=== PATIENT | female | born 1980 | race African-American/Black ===

== ENCOUNTER 2021-01-11 15:38 | Inpatient (IN) ==
[2021-01-11 17:36] LABS: Appearance Urine Clear (Clear); Bilirubin Urine Negative (Negative); Blood Urine Negative (Negative); Color Urine Dark Yellow; Glucose Urine UA Negative (Negative); Ketones Urine Trace (Negative); Leukocyte Esterase Urine Negative (Negative); Nitrite Urine Negative (Negative); Protein Urine Negative (Negative); Specific Gravity Urine 1.021 (1.000-1.030); Urobilinogen Urine Negative (Negative); pH Urine 5.5 (4.5-7.5)
[2021-01-11 18:05] LABS: Amphetamines+Metham, Urine Neg (Neg); Barbiturates, Urine Neg (Neg); Benzodiazepine, Urine Pos (Neg); Cocaine, Urine Neg (Neg); MDMA (Ecstacy), Urine Pos (Neg); Methadone, Urine Neg (Neg); Opiate, Urine Neg (Neg); Phencyclidine, Urine Neg (Neg)
[2021-01-11 18:11] LABS: Hemoglobin 12.6 g/dL (12.0-16.0); Mean Corpuscular Hemoglobin 29.6 pg (25-34); Mean Corpuscular Hgb Conc 34.1 g/dL (32-36); Mean Corpuscular Volume 87.1 fL (80-100); Mean Platelet Volume 8.6 fL (7.4-10.4); Platelet Count 275 K/uL (130-400); RDW Coefficient of Variation 13.9 % (11.5-14.5); RDW Standard Deviation 44.8 fL (36.4-46.3); Red Blood Count 4.25 M/uL (4.2-5.4); White Blood Count 4.76 K/uL (4.8-10.8)
[2021-01-11 18:25] LABS: Basophils # (auto) 0.01 K/uL (0-0.2); Basophils % (auto) 0.2 %; Eosinophils # (auto) 0.03 K/uL (0-0.5); Eosinophils % (auto) 0.6 %; Immature Granulocytes # (auto) 0.01 K/uL (0.00-0.02); Immature Granulocytes % (auto) 0.2 %; Lymphocytes # (auto) 2.62 K/uL (1.2-3.4); Monocytes # (auto) 0.51 K/uL (0.11-0.59); Monocytes % (auto) 10.7 %; Neutrophils # (auto) 1.58 K/uL (1.4-6.5); Neutrophils % (auto) 33.3 %
[2021-01-11 18:28] LABS: Albumin Level 3.5 gm/dl (3.4-5.0); BUN Creatinine Ratio 10.4 (10-20); Calcium 9.6 mg/dl (8.5-10.1); Creatinine Clr Calc Pharmacy 80.1 ml/min; Est GFR (African American) 80.1; Est GFR (Non-African American) 69.1; Potassium 3.7 mmol/L (3.5-5.1)
[2021-01-11 18:30] LABS: Salicylate < 1.7 mg/dl (2.8-20)
[2021-01-11 18:31] LABS: Acetaminophen < 2 ug/ml (10-30)
[2021-01-11 18:39] LABS: Albumin Globulin Ratio 0.7 (0.9-2); Bilirubin,Total 0.7 mg/dl (0.2-1); Globulin 4.8 gm/dl (2.5-4.0); Thyroid Stimulating Hormone 1.11 uIu/ml (0.300-4.500); Total Protein 8.3 gm/dl (6.4-8.2)
[2021-01-11 18:42] LABS: Pregnancy Test, Serum Negative (Negative)
[2021-01-11] MEDS ORDERED: LOPERAMIDE HCL 2 MG CAP PO PRN (18:48)
[2021-01-11] MEDS ORDERED: NON-FORMULARY MEDICATION (Diclofenac Sodium 50 mg Tablet,Delayed Release (Dr/Ec)) PO PRN (18:48)
[2021-01-11] MEDS ORDERED: NICOTINE POLACRILEX 2 MG GUM MT PRN (18:48)
[2021-01-11] MEDS ORDERED: cloNIDine HCL 0.1 MG TAB PO PRN (18:48)
[2021-01-11] MEDS ORDERED: NON-FORMULARY MEDICATION (Melatonin 5 mg Tablet) PO PRN (18:48)
[2021-01-11] MEDS ORDERED: hydrOXYzine HCl 25 MG TAB PO PRN (18:48)
[2021-01-11] MEDS ORDERED: MELATONIN 3 MG TAB PO PRN (20:04)
[2021-01-11 20:15] LABS: Influenza A virus by PCR Negative (Neg); Influenza B virus by PCR Negative (Neg); RSV by PCR Negative (Neg); SARS CoV2 RNA(COVID-19) InHosp NEGATIVE (Negative)
[2021-01-11] MEDS ORDERED: PRAZOSIN HCL 1 MG CAP PO SCH ×2 (21:00)
--- NOTE | 2021-01-11 21:57 | Emergency Department Note ---
Impression & Plan Suicidal ideation ED Provider Note NAME: RENNY LUONG AGE: 40 SEX: F ARRIVES VIA: Walk-In INFORMANT: Patient, ED PROVIDER(S): Nitin Arizmendi MD CHIEF COMPLAINT: Suicidal ideation PLAN: Disposition: Admit, 3S MEDICAL DECISION MAKING: The patient is a pleasant 40-year-old woman with a past medical history anxiety, depression, heroin abuse who presents to the emergency department from her detox facility at [facility] for evaluation of suicidal ideation which the patient reported today where she was in her room thinking of blocking the door to her room and cutting her wrists so no one could get to her in time. The patient presents to the emergency department in the setting of her report of recently moving to [place] to be with her daughter were her prescription for Suboxone from [place] where she you have previously could not be filled and she went at least 4 weeks per her description without having Suboxone when she agreed to [facility] with her daughter but wanted to complete a substance abuse program to make sure she was on track and so she says she came to [facility]. While she reports she initially did not want to resume Suboxone she relates that her counselor from [place] encouraged her to not discontinue this abruptly and so she agreed to a tapering dose which was performed at [facility]. However today she reports feeling increasingly depressed and hopeless and had thoughts of wanting to kill herself. She reports these thoughts have calmed but still feels depressed and feels she would benefit from a psychiatric admission. Note, following the patient's psychiatric evaluation she did report to our sample case porter that she thinks she fell last night in the bathroom but does not recall the circumstances very well. She reports alerting a staff member at [facility] and she was not found to have any injuries. At this time she denies any pain though she reported some numbness and tingling in her hand. Otherwise she denies any recent fevers, chills, cough, congestion, GI or symptoms. The patient is in agreement for voluntary psychiatric admission if able to be placed. On arrival the patient is tearful appearing but no acute distress, afebrile with stable vital signs. She has no traumatic findings. There is no tenderness of the CT L-spine. She has normal strength in all extremities. She does report depression and intermittent SI with plan. She denies hopelessness in this momen t. She denies having auditory hallucinations. WBC 4.7K, H/H and platelets within normal limits. Chemistry without metabolic acidosis. LFTs unremarkable. TSH within normal limits. hCG negative. UA without convincing evidence of infection. Drug screen positive for benzodiazepines and MDMA likely from her bupropion. COVID-19 PCR negative. Influenza and RSV PCR also negative. Given her report of an unwitnessed fall a CT of the head and C-spine were performed and per preliminary stat report were negative for acute findings. Patient medically cleared. Referral made to and was accepted. Triage Nursing notes reviewed and agree them. Prior medical records reviewed Vital Signs: reviewed and remarkable for no significant abnormalities Differential diagnosis: Mood disorder, infection, hypoglycemia, electrolyte abnormalities, cardiac sources, intracerebral event, toxicologic, trauma, neurologic, as well as other pathologies. ER treatment provided: See below. Laboratory studies: See below Imaging studies: [facility] Preliminary Findings Only See Final Report For Complete Findings CT C SPINE: No fracture or malalignment. Radiologist: Paul Erwin MD Study ready at 21:42 and initial results transmitted at 21:50 ----- Preliminary Findings Only See Final Report For Complete Findings CT HEAD: No acute intracranial hemorrhage, hydrocephalus, edema, or mass effect. Paranasal sinuses and mastoid air cells are clear. No fracture. Radiologist: Paul Erwin MD Study ready at 21:30 and initial results transmitted at 21:36 HPI: The patient is a pleasant 40-year-old woman with a past medical history anxiety, depression, heroin abuse who presents to the emergency department from her detox facility at [facility] for evaluation of suicidal ideation which the patient reported today where she was in her room thinking of blocking the door to her room and cutting her wrists so no one could get to her in time. The patient presents to the emergency department in the setting of her report of recently moving to [place] to be with her daughter were her prescription for Suboxone from [place] where she you have previously could not be filled and she went at least 4 weeks per her description without having Suboxone when she agreed to stay in [place] with her daughter but wanted to complete a substance abuse program to make sure she was on track and so she says she came to [facility]. While she reports she initially did not want to resume Suboxone she relates that her counselor from [place] encouraged her to not discontinue this abruptly and so she agreed to a tapering dose which was performed at [facility]. However today she reports feeling increasingly depressed and hopeless and had thoughts of wanting to kill herself. She reports these thoughts have calmed but still feels depressed and feels she would benefit from a psychiatric admission. Note, following the patient's psychiatric evaluation she did report to our sample case porter that she thinks she fell last night in the bathroom but does not recall the circumstances very well. She reports alerting a staff member at [facility] and she was not found to have any injuries. At this time she denies any pain though she reported some numbness and tingling in her hand. Otherwise she denies any recent fevers, chills, cough, congestion, GI or symptoms. The patient is in agreement for voluntary psychiatric admission if able to be placed. ROS: See above HPI for pertinent positives & negatives. A total of 10 systems reviewed and were otherwise negative. PAST MEDICAL HISTORY:See Below PAST SURGICAL HISTORY:See Below FAMILY HISTORY:See Below SOCIAL HISTORY:See Below HOME MEDICATIONS:See Below ALLERGIES:See Below VITALS:See Below PHYSICAL EXAMINATION: GENERAL: Awake, alert, anxious/melancholy-appearing, in no distress HENT: Normocephalic, atraumatic. Oropharynx unremarkable. EYES: Normal conjunctiva. Sclera non-icteric. EOMI. No nystamgus. PEARRL. NECK: Supple. No nuchal rigidity. FROM. No JVD. RESPIRATORY: Clear to auscultation. CARDIAC: Regular rate, normal rhythm. Extremities warm and well perfused. Pulses equal. ABDOMEN: Soft, non-distended. No tenderness to palpation. No rebound or guarding. No masses. RECTAL: Deferred. MUSCULOSKELETAL: Chest examination reveals no tenderness. The back is symmetrical on inspection without obvious abnormality. There is no CVA tenderness to palpation. No joint edema. LOWER EXTREMITIES: Calves are equal size bilaterally and non-tender. No edema. No discoloration. NEURO: Normal sensorium. No sensory or motor deficits noted. 5/5 strength and SILT x 4 extremities. SKIN: No rash or jaundice noted. Nitin Arizmendi MD Past Med/Surg History Medical History Depression Heroin abuse Social History Smoking Status: Current some day smoker Preferred Language: Icelandic Communication Ability: Effective Death Surveys Coder Required: No Beliefs That Will Affect Care: None Feels Safe at Home: Yes Assistive Devices: None Allergies Allergies Allergy/AdvReac Type Severity Reaction Status Date / Time lactose AdvReac Intermediate INTOLERATE Verified 01/11/21 18:21 Home Meds Home Medications Medication Instructions Recorded Confirmed bupropion HCl [Wellbutrin XL] 150 mg PO QAM 01/11/21 01/11/21 bupropion HCl [Wellbutrin XL] 300 mg PO QAM 01/11/21 01/11/21 clonidine HCl 0.1 mg PO TID PRN 01/11/21 01/11/21 cyanocobalamin (vitamin B-12) 1,000 mcg PO DAILY 01/11/21 01/11/21 [Vitamin B-12] diclofenac sodium 50 mg PO TID PRN 01/11/21 01/11/21 diphenhydramine HCl [Benadryl] 25 - 50 mg PO Q6H PRN 01/11/21 01/11/21 escitalopram oxalate [Lexapro] 20 mg PO DAILY 01/11/21 01/11/21 folic acid 1 mg PO DAILY 01/11/21 01/11/21 hydroxyzine HCl [Atarax] 50 - 100 mg PO BID PRN 01/11/21 01/11/21 loperamide [Imodium] 4 mg PO QID PRN 01/11/21 01/11/21 melatonin 5 - 10 mg PO HS PRN 01/11/21 01/11/21 multivitamin 1 tab PO DAILY 01/11/21 01/11/21 nicotine (polacrilex) [Nicorette] 4 mg BUCCAL Q2H PRN 01/11/21 01/11/21 prazosin 2 mg PO HS 01/11/21 01/11/21 prazosin 10 mg PO HS 01/11/21 01/11/21 thiamine HCl (vitamin B1) 100 mg PO DAILY 01/11/21 01/11/21 Results & Data (ED) Vital Signs Vital Signs - 24 hr 01/11/21 15:41 01/11/21 18:53 01/11/21 23:09 Temperature 36.6 C Temperature Source Temporal Artery Scan Pulse Rate 93 H 94 H Pulse Rate [Right Finger] 77 Pulse Rhythm [Right Finger] Regular Pulse Strength [Right Finger] Normal Respiratory Rate 20 16 18 Respiratory Effort / Characteristics Non-Labored Spontaneous Non-Labored Respiratory Depth Normal Normal Respiratory Pattern Regular Blood Pressure 128/88 116/79 Blood Pressure [Right Radial Artery] 128/75 Blood Pressure Mean 101 Blood Pressure Mean [Right Radial Artery] 92 Blood Pressure Position [Right Radial Artery] Lying Pulse Oximetry 100 100 100 Oxygen Delivery Method Room Air Room Air Room Air Sepsis Recent Fever Within 48 Hours No Sepsis New/Unexplained Change in Mental Status N/A Sepsis Action Taken by Nursing No Action Required Laboratory Data Attestation: I reviewed the patient's lab results. Result diagrams: 01/11/21 17:52 01/11/21 17:52 Lab Results 01/11/21 01/11/21 01/11/21 Range/Units 17:20 17:20 17:52 WBC 4.76 L (4.8-10.8) K/uL RBC 4.25 (4.2-5.4) M/uL Hgb 12.6 (12.0-16.0) g/dL Hct 37.0 (37-47) % MCV 87.1 (80-100) fL MCH 29.6 (25-34) pg MCHC 34.1 (32-36) g/dL RDW Std Deviation 44.8 (36.4-46.3) fL RDW Coeff of Yogi 13.9 (11.5-14.5) % Plt Count 275 (130-400) K/uL MPV 8.6 (7.4-10.4) fL Immature Gran % (Auto) 0.2 % Neut % (Auto) 33.3 % Lymph % (Auto) 55.0 % Amelia % (Auto) 10.7 % Eos % (Auto) 0.6 % Baso % (Auto) 0.2 % Neut # (Auto) 1.58 (1.4-6.5) K/uL Lymph # (Auto) 2.62 (1.2-3.4) K/uL Amelia # (Auto) 0.51 (0.11-0.59) K/uL Eos # (Auto) 0.03 (0-0.5) K/uL Baso # (Auto) 0.01 (0-0.2) K/uL Immature Gran # (Auto) 0.01 (0.00-0.02) K/uL Sodium (136-145) mmol/L Potassium (3.5-5.1) mmol/L Chloride (98-107) mmol/L Carbon Dioxide (21-32) mmol/L Anion Gap (3-11) BUN (7-18) mg/dl Creatinine (0.6-1.2) mg/dl Est Cr Clr Drug Dosing ml/min Est GFR ( Amer) Est GFR (Non-Af Amer) BUN/Creatinine Ratio (10-20) Glucose (70-99) mg/dl Calcium (8.5-10.1) mg/dl Total Bilirubin (0.2-1) mg/dl AST (15-37) U/L ALT (12-78) U/L Alkaline Phosphatase (45-117) U/L Total Protein (6.4-8.2) gm/dl Albumin (3.4-5.0) gm/dl Globulin (2.5-4.0) gm/dl Albumin/Globulin Ratio (0.9-2) TSH (0.300-4.500) uIu/ml HCG, Qual (Negative) Urine Color Dark Yellow Urine Appearance Clear (Clear) Urine pH 5.5 (4.5-7.5) Ur Specific [place] 1.021 (1.000-1.030) Urine Protein Negative (Negative) Urine Glucose (UA) Negative (Negative) Urine Ketones Trace H (Negative) Urine Blood Negative (Negative) Urine Nitrite Negative (Negative) Urine Bilirubin Negative (Negative) Urine Urobilinogen Negative (Negative) Ur Leukocyte Esterase Negative (Negative) Salicylates (2.8-20) mg/dl Urine Opiates Screen Neg (Neg) Ur Methadone, Qual Neg (Neg) Acetaminophen (10-30) ug/ml Urine Barbiturates Neg (Neg) Ur Phencyclidine (PCP) Neg (Neg) U Amphetamin/Meth Scrn Neg (Neg) MDMA (Ecstasy) Screen Pos H (Neg) U Benzodiazepines Scrn Pos H (Neg) Ur Cocaine Metabolite Neg (Neg) U Marijuana (THC) Screen Neg (Neg) Ethyl Alcohol mg/dL (0-3) mg/dl COVID-19 Eval Order SARS-CoV-2 (PCR) (Negative) Influenza Type A (PCR) (Neg) Influenza Type B (PCR) (Neg) RSV (RT-PCR) (Neg) 01/11/21 01/11/21 01/11/21 Range/Units 17:52 17:52 17:52 WBC (4.8-10.8) K/uL RBC (4.2-5.4) M/uL Hgb (12.0-16.0) g/dL Hct (37-47) % MCV (80-100) fL MCH (25-34) pg MCHC (32-36) g/dL RDW Std Deviation (36.4-46.3) fL RDW Coeff of Yogi (11.5-14.5) % Plt Count (130-400) K/uL MPV (7.4-10.4) fL Immature Gran % (Auto) % Neut % (Auto) % Lymph % (Auto) % Amelia % (Auto) % Eos % (Auto) % Baso % (Auto) % Neut # (Auto) (1.4-6.5) K/uL Lymph # (Auto) (1.2-3.4) K/uL Amelia # (Auto) (0.11-0.59) K/uL Eos # (Auto) (0-0.5) K/uL Baso # (Auto) (0-0.2) K/uL Immature Gran # (Auto) (0.00-0.02) K/uL Sodium 136 (136-145) mmol/L Potassium 3.7 (3.5-5.1) mmol/L Chloride 104 (98-107) mmol/L Carbon Dioxide 24 (21-32) mmol/L Anion Gap 8.0 (3-11) BUN 11 (7-18) mg/dl Creatinine 1.01 (0.6-1.2) mg/dl Est Cr Clr Drug Dosing 80.1 ml/min Est GFR ( Amer) 80.1 Est GFR (Non-Af Amer) 69.1 BUN/Creatinine Ratio 10.4 (10-20) Glucose 86 (70-99) mg/dl Calcium 9.6 (8.5-10.1) mg/dl Total Bilirubin 0.7 (0.2-1) mg/dl AST 21 (15-37) U/L ALT 43 (12-78) U/L Alkaline Phosphatase 121 H (45-117) U/L Total Protein 8.3 H (6.4-8.2) gm/dl Albumin 3.5 (3.4-5.0) gm/dl Globulin 4.8 H (2.5-4.0) gm/dl Albumin/Globulin Ratio 0.7 L (0.9-2) TSH 1.110 (0.300-4.500) uIu/ml HCG, Qual (Negative) Urine Color Urine Appearance (Clear) Urine pH (4.5-7.5) Ur Specific [place] (1.000-1.030) Urine Protein (Negative) Urine Glucose (UA) (Negative) Urine Ketones (Negative) Urine Blood (Negative) Urine Nitrite (Negative) Urine Bilirubin (Negative) Urine Urobilinogen (Negative) Ur Leukocyte Esterase (Negative) Salicylates < 1.7 L (2.8-20) mg/dl Urine Opiates Screen (Neg) Ur Methadone, Qual (Neg) Acetaminophen < 2 L (10-30) ug/ml Urine Barbiturates (Neg) Ur Phencyclidine (PCP) (Neg) U Amphetamin/Meth Scrn (Neg) MDMA (Ecstasy) Screen (Neg) U Benzodiazepines Scrn (Neg) Ur Cocaine Metabolite (Neg) U Marijuana (THC) Screen (Neg) Ethyl Alcohol mg/dL < 3.0 (0-3) mg/dl COVID-19 Eval Order SARS-CoV-2 (PCR) (Negative) Influenza Type A (PCR) (Neg) Influenza Type B (PCR) (Neg) RSV (RT-PCR) (Neg) 01/11/21 01/11/21 01/11/21 Range/Units 17:52 19:30 19:30 WBC (4.8-10.8) K/uL RBC (4.2-5.4) M/uL Hgb (12.0-16.0) g/dL Hct (37-47) % MCV (80-100) fL MCH (25-34) pg MCHC (32-36) g/dL RDW Std Deviation (36.4-46.3) fL RDW Coeff of Yogi (11.5-14.5) % Plt Count (130-400) K/uL MPV (7.4-10.4) fL Immature Gran % (Auto) % Neut % (Auto) % Lymph % (Auto) % Amelia % (Auto) % Eos % (Auto) % Baso % (Auto) % Neut # (Auto) (1.4-6.5) K/uL Lymph # (Auto) (1.2-3.4) K/uL Amelia # (Auto) (0.11-0.59) K/uL Eos # (Auto) (0-0.5) K/uL Baso # (Auto) (0-0.2) K/uL Immature Gran # (Auto) (0.00-0.02) K/uL Sodium (136-145) mmol/L Potassium (3.5-5.1) mmol/L Chloride (98-107) mmol/L Carbon Dioxide (21-32) mmol/L Anion Gap (3-11) BUN (7-18) mg/dl Creatinine (0.6-1.2) mg/dl Est Cr Clr Drug Dosing ml/min Est GFR ( Amer) Est GFR (Non-Af Amer) BUN/Creatinine Ratio (10-20) Glucose (70-99) mg/dl Calcium (8.5-10.1) mg/dl Total Bilirubin (0.2-1) mg/dl AST (15-37) U/L ALT (12-78) U/L Alkaline Phosphatase (45-117) U/L Total Protein (6.4-8.2) gm/dl Albumin (3.4-5.0) gm/dl Globulin (2.5-4.0) gm/dl Albumin/Globulin Ratio (0.9-2) TSH (0.300-4.500) uIu/ml HCG, Qual Negative (Negative) Urine Color Urine Appearance (Clear) Urine pH (4.5-7.5) Ur Specific [place] (1.000-1.030) Urine Protein (Negative) Urine Glucose (UA) (Negative) Urine Ketones (Negative) Urine Blood (Negative) Urine Nitrite (Negative) Urine Bilirubin (Negative) Urine Urobilinogen (Negative) Ur Leukocyte Esterase (Negative) Salicylates (2.8-20) mg/dl Urine Opiates Screen (Neg) Ur Methadone, Qual (Neg) Acetaminophen (10-30) ug/ml Urine Barbiturates (Neg) Ur Phencyclidine (PCP) (Neg) U Amphetamin/Meth Scrn (Neg) MDMA (Ecstasy) Screen (Neg) U Benzodiazepines Scrn (Neg) Ur Cocaine Metabolite (Neg) U Marijuana (THC) Screen (Neg) Ethyl Alcohol mg/dL (0-3) mg/dl COVID-19 Eval Order [facility] at [facility] SARS-CoV-2 (PCR) NEGATIVE (Negative) Influenza Type A (PCR) Negative (Neg) Influenza Type B (PCR) Negative (Neg) RSV (RT-PCR) Negative (Neg) Administered Medications Hydroxyzine HCl (Hydroxyzine Hcl 25 Mg Tab) 50 mg PO HSZ PRN PRN Reason: Insomnia Stop: 02/10/21 23:23 Last Admin: 01/11/21 23:42 Dose: 50 mg Documented by: [id number] Discontinued Medications Hydroxyzine HCl (Hydroxyzine Hcl 25 Mg Tab) 50 - 100 mg PO BID PRN PRN Reason: Anxiety Stop: 02/10/21 18:47 Last Admin: 01/11/21 18:59 Dose: 50 mg Documented by: [id number] Melatonin (Melatonin 3 Mg Tab) 6 mg PO HS PRN PRN Reason: Sleep Stop: 02/10/21 20:03 Last Admin: 01/11/21 20:35 Dose: 6 mg Documented by: [id number] Prazosin HCl (Prazosin Hcl 1 Mg Cap) 2 mg PO HS TERESSA Stop: 02/10/21 20:59 Last Admin: 01/11/21 20:34 Dose: 2 mg Documented by: [id number] Prazosin HCl (Prazosin Hcl 1 Mg Cap) 10 mg PO HS TERESSA Stop: 02/10/21 20:59 Last Admin: 01/11/21 20:34 Dose: 10 mg Documented by: [id number] Discharge Plan Visit Data Chief Complaint: Mental Health Evaluation Stated Complaint: MENTAL HEALTH EVAL ED Provider: Nitin Arizmendi Discharge Problem: Suicidal ideation Patient Disposition: Admitted As Inpatient Discharge Instructions Interventions: ED Discharge Assessment Last Done: 01/11/21 23:09
[2021-01-11] MEDS ORDERED: BISMUTH SUBSALICYLATE LIQD 236 ML PO PRN (23:24)
[2021-01-11] MEDS ORDERED: MAGNESIUM HYDROXIDE SUSP 30 ML UDC PO PRN (23:24)
[2021-01-11] MEDS ORDERED: SODIUM CHLORIDE 0.65% NA SOLN 45 ML (OCEAN) PRN (23:24)
[2021-01-11] MEDS: hydrOXYzine HCl 25 MG TAB PO PRN (23:42)
[2021-01-12] MEDS: ACETAMINOPHEN 325 MG TAB PO PRN (06:31)
[2021-01-12] MEDS: hydrOXYzine HCl 25 MG TAB PO PRN ×3 (06:33→21:23)
--- NOTE | 2021-01-12 07:30 | CT Scan Report ---
CT OF THE CERVICAL SPINE WITHOUT CONTRAST CLINICAL HISTORY: Neck pain following fall. COMPARISON STUDY: No previous studies for comparison. TECHNIQUE: Helical axial images of the cervical spine were obtained without IV contrast. Sagittal a nd coronal reconstructions were viewed. Automated exposure control was utilized for the study. A do se lowering technique was utilized adhering to the principles of ALARA. FINDINGS: There is straightening of the normal cervical lordosis. Vertebral body heights are maintain ed. No acute cervical spine fracture or subluxation is present. There is no prevertebral edema. Facet joints are intact. Several partially calcified right thyroid lobe nodules are noted. These are subo ptimally assessed by CT. A 1.3 cm nodule has peripheral calcification. IMPRESSION: 1. No acute cervical spine fracture or subluxation. 2. Several partially calcified right lobe thyroid nodules, suboptimally assessed by CT. Nonemergent t hyroid ultrasound is recommended. This finding will be called/faxed to the ordering provider at time of dictation. ACT 112: Positive. There are findings on this exam that require communication between the performing entity and the patient following Patient Test Result Information Act ([place] Act 112) guidelines. Electronically signed by: Jose Maria Ge M.D. 01/12/2021 7:29 AM
--- NOTE | 2021-01-12 07:38 | CT Scan Report ---
CT head/brain wo con CLINICAL HISTORY: Head pain status post trauma COMPARISON STUDY: No previous studies for comparison. TECHNIQUE: Axial CT of the brain is performed from the vertex to the skull base. IV contrast was not administered for this examination. A dose lowering technique was utilized adhering to the principles of ALARA. CT DOSE: FINDINGS: No intra or extra-axial mass lesions are visualized. There is no CT evidence of acute cortical infarc tion. There is no evidence of midline shift. There is no acute hemorrhage. No calvarial fractures ar e visualized. There is no evidence of pathologic ventricular dilatation. There is no evidence of acute sinusitis IMPRESSION: No acute intracranial findings ACT 112: Negative or not required by law. Electronically signed by: Mina Gardiner M.D. 01/12/2021 7:36 AM
[2021-01-12] MEDS ORDERED: buPROPion XL 150 MG TABCR PO SCH ×2 (09:00→10:00)
[2021-01-12] MEDS ORDERED: MULTIVITAMIN TAB PO SCH (09:00)
[2021-01-12] MEDS ORDERED: ESCITALOPRAM OXALATE 20 MG TAB PO SCH (09:00)
[2021-01-12] MEDS ORDERED: buPROPion XL 300 MG TABCR PO SCH (09:00)
[2021-01-12] MEDS ORDERED: FOLIC ACID 1 MG TAB PO SCH (09:00)
[2021-01-12] MEDS ORDERED: THIAMINE HCL 100 MG TAB PO SCH (09:00)
--- NOTE | 2021-01-12 09:03 | History & Physical ---
Date of Service January 12, 2021 Impression / Recommendations Impression 40 yo female with a history of depression and anxiety, transferred from rehab for emergent SI during treatment for opiate dependence. Now presenting with psychomotor agitation, racing thoughts and auditory ellis (patient cannot elaborate due to acute distress) (1) Depression: 01/12/21--The patient was admitted to the [facility] ([facility] health unit) on q15 min checks (behavioral with suicide precautions) for safety. The patient will participate in group, recreational, and milieu therapies and will be offered additional individual and family sessions as clinically appropriate. Haldol 5 mg po X1 now, MNPR as cannot tolerate roommate due to psychosis. Was given am meds (antidepressants) at half or less of am doses due to concerns about possible bipolar mixed episode. Now relates aud ellis so will hold am dose of Wellbutrin. Will initiate standing antipsychotic/mood stabilizer when able to get consent, in meantime will order am fasting metabolic labs. Depression Type: unspecified Qualified Code(s): F32.9 - Major depressive disorder, single episode, unspecified (2) Opiate dependence, continuous: 01/12/21-- currently in early remission following suboxone taper, will return to rehab when psychiatrically stable. Unable to participate in brief intervention at this time. (3) Thyroid nodule incidentally noted on imaging study: 01/12/21--incidental finding on c-spine CT of calcified nodules, will need non-urgent US as outpatient. Risk Factors Assessment Male: No : No Protective Factors Assessment Employed: No Psychiatric History Identifying Data RENNY LUONG is a 40-year-old F from [place] who was living with daughter in [place], has a history of heroin dependence (transferred from [facility]), and was admitted on 01/11/21 23:24 on a 201 voluntary commitment for SI with plan. Chief Complaint "My thoughts are racing, I'm sorry, don't ask me more questions, I can't handle it." History of Present Illness Patient reports a history of depression and anxiety, was not able to get suboxone when staying with daughter in [place] and was off for over a month when [facility] care at rehab mid November. It was recommended she restart Suboxone to officially taper there and received last dose 2-3 days ago. During that time she has been increasingly irritable, less present in therapy groups, not sleeping or eating as well. Renny reports having thoughts to end her life by barricading herself in her room at [facility] and then cutting her wrists. She was transferred to ED as could not contract for safety at rehab. Today the patient is rocking and complaining of racing thoughts. In her room in the dark to limit stimulation. Reports she can't make out her racing thoughts but does feel suicidal, doesn't want to act on those thoughts here, "I just want to feel better, please give me something". Denies previous exposure to mood stabilizers. Denies hx of bipolar depression. Understands that antidepressants can be activating but hasn't really experienced this before, at least not to this level. Unable to obtain history of use of heroin. Denies physical symptoms of withdrawal. Attempted to reevaluate patient after 50 mg of Seroquel as out in hallway, she was unable to tolerate stimulation of speaking with peer and returned to room to [place] and mentioned auditory ellis. Voices were scary and adding to her paranoia. Past Psychiatric History Previous Psych History: patient is unable to provide at this time. Current Psychiatric Diagnosis: Depressive disorder unspecified Allergies Allergy/AdvReac Type Severity Reaction Status Date / Time lactose AdvReac Intermediate INTOLERATE Verified 01/11/21 18:21 Home Medications Medication Instructions Recorded Confirmed Type bupropion HCl [Wellbutrin XL] 150 mg PO QAM 01/11/21 01/11/21 History bupropion HCl [Wellbutrin XL] 300 mg PO QAM 01/11/21 01/11/21 History clonidine HCl 0.1 mg PO TID PRN 01/11/21 01/11/21 History cyanocobalamin (vitamin B-12) 1,000 mcg PO DAILY 01/11/21 01/11/21 History [Vitamin B-12] diclofenac sodium 50 mg PO TID PRN 01/11/21 01/11/21 History diphenhydramine HCl [Benadryl] 25 - 50 mg PO Q6H PRN 01/11/21 01/11/21 History escitalopram oxalate [Lexapro] 20 mg PO DAILY 01/11/21 01/11/21 History folic acid 1 mg PO DAILY 01/11/21 01/11/21 History hydroxyzine HCl [Atarax] 50 - 100 mg PO BID PRN 01/11/21 01/11/21 History loperamide [Imodium] 4 mg PO QID PRN 01/11/21 01/11/21 History melatonin 5 - 10 mg PO HS PRN 01/11/21 01/11/21 History multivitamin 1 tab PO DAILY 01/11/21 01/11/21 History nicotine (polacrilex) [Nicorette] 4 mg BUCCAL Q2H PRN 01/11/21 01/11/21 History prazosin 2 mg PO HS 01/11/21 01/11/21 History prazosin 10 mg PO HS 01/11/21 01/11/21 History thiamine HCl (vitamin B1) 100 mg PO DAILY 01/11/21 01/11/21 History Family History Family History of: Doesn't Know Alcohol History Hx of Alcohol Use Over the Past 12 Months: Yes AUDIT Total Score: 0 Smoking Use Have You Smoked or Used Tobacco Products in the Last 30 Days: Yes tobacco type: cigarettes Smoking Status: Current some day smoker Substance History Hx of Prescription Med Misuse Over the Past 12 Months: Yes (Opiates) Hx of Over the Counter Med Misuse Over the Past 12 Months: No Hx of Inhalent Misuse Over the Past 12 Months: No Hx of Organic Substance Use Over the Past 12 Months: No Hx of Illegal Substances/Street Drug Use Over Past 12 Months: No Problems as a Result of Past Substance Use: Life out of Control Problems as a Result of Past Substance Use Comments: Losing time with children and grandchildren Personal History Living Arrangements: Apartment Employment Status: Unemployed Number Of Children: adult daughter in [place]. Beliefs That Will Affect Care: None Current Legal Problems: No Psychological Trauma History Comment: patient unable to provide hx at this time. Patient History Medical History Depression Heroin abuse Social History Smoking Status: Current some day smoker Preferred Language: Mauritian Communication Ability: Effective Insurance Claims Representative Required: No Beliefs That Will Affect Care: None Feels Safe at Home: Yes Assistive Devices: None Review of Systems Review of Systems: All systems reviewed & are unremarkable except as noted in HPI & below Physical Exam Psychiatric: Orientation: alert Apperance: + disheveled Eye Contact: + poor eye contact Motor Behavior: + psychomotor agitation (rocking) Speech: + pressured speech (when does speak, holding head as if responding to internal stimuli.) Affect: + depressed affect Mood: + depressed mood Thought Process: + tangential thought process Thought Content: + paranoid and + persecution suicidal ideation, no intent or plan on unit, doesn't want to be alone as afraid of the voices. Homicidal Thoughts: denies homicidal thoughts Hallucinations: + auditory hallucinations; no visual hallucinations Cognition: language grossly intact; + recent memory not intact and + attention not intact Insight: + poor insight Vital Signs (Past 24 Hours): Last Vital Signs Temp 37 C 01/12/21 06:00 Pulse 78 01/12/21 06:18 Resp 16 01/12/21 06:00 BP 102/69 01/12/21 06:18 Pulse Ox 100 01/11/21 23:33 Exam Statement: A physical exam was performed in the ED by Dr. Arizmendi for the purposes of medical clearance. I accept that physical as correct and adequate for the purposes of the inpatient physical exam. Results & Data ([facility]) Laboratory Results Laboratory Results - last 24 hr 01/11/21 01/11/21 01/11/21 17:20 17:20 17:20 WBC RBC Hgb Hct MCV MCH MCHC RDW Std Deviation RDW Coeff of Yogi Plt Count MPV Immature Gran % (Auto) Neut % (Auto) Lymph % (Auto) [place] % (Auto) Eos % (Auto) Baso % (Auto) Neut # (Auto) Lymph # (Auto) [place] # (Auto) Eos # (Auto) Baso # (Auto) Immature Gran # (Auto) Sodium Potassium Chloride Carbon Dioxide Anion Gap BUN Creatinine Est Cr Clr Drug Dosing Est GFR ( Amer) Est GFR (Non-Af Amer) BUN/Creatinine Ratio Glucose Calcium Total Bilirubin AST ALT Alkaline Phosphatase Total Protein Albumin Globulin Albumin/Globulin Ratio TSH HCG, Qual Urine Color Dark Yellow Urine Appearance Clear Urine pH 5.5 Ur Specific [place] 1.021 Urine Protein Negative Urine Glucose (UA) Negative Urine Ketones Trace H Urine Blood Negative Urine Nitrite Negative Urine Bilirubin Negative Urine Urobilinogen Negative Ur Leukocyte Esterase Negative Salicylates Urine Opiates Screen Neg Ur Methadone, Qual Neg Acetaminophen Urine Barbiturates Neg Ur Phencyclidine (PCP) Neg U Amphetamin/Meth Scrn Neg Urine MDEA Pending MDMA (Ecstasy) Screen Pos H MDMA Pending Urine MDMA Pending U OH-Alprazolam Confrm Pending U Benzodiazepines Scrn Pos H 7-Amino Clonazepam Pending Ur Nordiazepam Confirm Pending U OH-ethylflurazepam Pending U Lorazepam Cnf GC/MS Pending U Oxazepam Confm GC/MS Pending Ur Temazepam Confirm Pending U OH-Triazolam Confirm Pending U OH-Midazolam Confirm Pending Ur Cocaine Metabolite Neg U Marijuana (THC) Screen Neg Drug Screen Comment Pending Ethyl Alcohol mg/dL COVID-19 Eval Order SARS-CoV-2 (PCR) Influenza Type A (PCR) Influenza Type B (PCR) RSV (RT-PCR) 01/11/21 01/11/21 01/11/21 17:52 17:52 17:52 WBC 4.76 L RBC 4.25 Hgb 12.6 Hct 37.0 MCV 87.1 MCH 29.6 MCHC 34.1 RDW Std Deviation 44.8 RDW Coeff of Yogi 13.9 Plt Count 275 MPV 8.6 Immature Gran % (Auto) 0.2 Neut % (Auto) 33.3 Lymph % (Auto) 55.0 [place] % (Auto) 10.7 Eos % (Auto) 0.6 Baso % (Auto) 0.2 Neut # (Auto) 1.58 Lymph # (Auto) 2.62 [place] # (Auto) 0.51 Eos # (Auto) 0.03 Baso # (Auto) 0.01 Immature Gran # (Auto) 0.01 Sodium 136 Potassium 3.7 Chloride 104 Carbon Dioxide 24 Anion Gap 8.0 BUN 11 Creatinine 1.01 Est Cr Clr Drug Dosing 80.1 Est GFR ( Amer) 80.1 Est GFR (Non-Af Amer) 69.1 BUN/Creatinine Ratio 10.4 Glucose 86 Calcium 9.6 Total Bilirubin 0.7 AST 21 ALT 43 Alkaline Phosphatase 121 H Total Protein 8.3 H Albumin 3.5 Globulin 4.8 H Albumin/Globulin Ratio 0.7 L TSH 1.110 HCG, Qual Urine Color Urine Appearance Urine pH Ur Specific [place] Urine Protein Urine Glucose (UA) Urine Ketones Urine Blood Urine Nitrite Urine Bilirubin Urine Urobilinogen Ur Leukocyte Esterase Salicylates < 1.7 L Urine Opiates Screen Ur Methadone, Qual Acetaminophen < 2 L Urine Barbiturates Ur Phencyclidine (PCP) U Amphetamin/Meth Scrn Urine MDEA MDMA (Ecstasy) Screen MDMA Urine MDMA U OH-Alprazolam Confrm U Benzodiazepines Scrn 7-Amino Clonazepam Ur Nordiazepam Confirm U OH-ethylflurazepam U Lorazepam Cnf GC/MS U Oxazepam Confm GC/MS Ur Temazepam Confirm U OH-Triazolam Confirm U OH-Midazolam Confirm Ur Cocaine Metabolite U Marijuana (THC) Screen Drug Screen Comment Ethyl Alcohol mg/dL COVID-19 Eval Order SARS-CoV-2 (PCR) Influenza Type A (PCR) Influenza Type B (PCR) RSV (RT-PCR) 01/11/21 01/11/21 01/11/21 17:52 17:52 19:30 WBC RBC Hgb Hct MCV MCH MCHC RDW Std Deviation RDW Coeff of Yogi Plt Count MPV Immature Gran % (Auto) Neut % (Auto) Lymph % (Auto) [place] % (Auto) Eos % (Auto) Baso % (Auto) Neut # (Auto) Lymph # (Auto) [place] # (Auto) Eos # (Auto) Baso # (Auto) Immature Gran # (Auto) Sodium Potassium Chloride Carbon Dioxide Anion Gap BUN Creatinine Est Cr Clr Drug Dosing Est GFR ( Amer) Est GFR (Non-Af Amer) BUN/Creatinine Ratio Glucose Calcium Total Bilirubin AST ALT Alkaline Phosphatase Total Protein Albumin Globulin Albumin/Globulin Ratio TSH HCG, Qual Negative Urine Color Urine Appearance Urine pH Ur Specific [place] Urine Protein Urine Glucose (UA) Urine Ketones Urine Blood Urine Nitrite Urine Bilirubin Urine Urobilinogen Ur Leukocyte Esterase Salicylates Urine Opiates Screen Ur Methadone, Qual Acetaminophen Urine Barbiturates Ur Phencyclidine (PCP) U Amphetamin/Meth Scrn Urine MDEA MDMA (Ecstasy) Screen MDMA Urine MDMA U OH-Alprazolam Confrm U Benzodiazepines Scrn 7-Amino Clonazepam Ur Nordiazepam Confirm U OH-ethylflurazepam U Lorazepam Cnf GC/MS U Oxazepam Confm GC/MS Ur Temazepam Confirm U OH-Triazolam Confirm U OH-Midazolam Confirm Ur Cocaine Metabolite U Marijuana (THC) Screen Drug Screen Comment Ethyl Alcohol mg/dL < 3.0 COVID-19 Eval Order [facility]sv at [facility] SARS-CoV-2 (PCR) Influenza Type A (PCR) Influenza Type B (PCR) RSV (RT-PCR) 01/11/21 19:30 WBC RBC Hgb Hct MCV MCH MCHC RDW Std Deviation RDW Coeff of Yogi Plt Count MPV Immature Gran % (Auto) Neut % (Auto) Lymph % (Auto) [place] % (Auto) Eos % (Auto) Baso % (Auto) Neut # (Auto) Lymph # (Auto) [place] # (Auto) Eos # (Auto) Baso # (Auto) Immature Gran # (Auto) Sodium Potassium Chloride Carbon Dioxide Anion Gap BUN Creatinine Est Cr Clr Drug Dosing Est GFR ( Amer) Est GFR (Non-Af Amer) BUN/Creatinine Ratio Glucose Calcium Total Bilirubin AST ALT Alkaline Phosphatase Total Protein Albumin Globulin Albumin/Globulin Ratio TSH HCG, Qual Urine Color Urine Appearance Urine pH Ur Specific [place] Urine Protein Urine Glucose (UA) Urine Ketones Urine Blood Urine Nitrite Urine Bilirubin Urine Urobilinogen Ur Leukocyte Esterase Salicylates Urine Opiates Screen Ur Methadone, Qual Acetaminophen Urine Barbiturates Ur Phencyclidine (PCP) U Amphetamin/Meth Scrn Urine MDEA MDMA (Ecstasy) Screen MDMA Urine MDMA U OH-Alprazolam Confrm U Benzodiazepines Scrn 7-Amino Clonazepam Ur Nordiazepam Confirm U OH-ethylflurazepam U Lorazepam Cnf GC/MS U Oxazepam Confm GC/MS Ur Temazepam Confirm U OH-Triazolam Confirm U OH-Midazolam Confirm Ur Cocaine Metabolite U Marijuana (THC) Screen Drug Screen Comment Ethyl Alcohol mg/dL COVID-19 Eval Order SARS-CoV-2 (PCR) NEGATIVE Influenza Type A (PCR) Negative Influenza Type B (PCR) Negative RSV (RT-PCR) Negative Current Inpatient Medications Current Inpatient Medications: Current Inpatient Medications Acetaminophen (Acetaminophen 325 Mg Tab) 650 mg PO Q4H PRN PRN Reason: Headache or Minor Fever Stop: 02/10/21 23:23 Last Admin: 01/12/21 06:31 Dose: 650 mg Documented by: Al Hydrox/Mg Hydrox/Simethicone (Aluminum/Magnesium Susp 30 Ml Udc) 30 ml PO Q4H PRN PRN Reason: GI Upset Stop: 02/10/21 23:23 Bismuth Subsalicylate (Bismuth Subsalicylate Liqd 236 Ml) 15 ml PO PRN PRN PRN Reason: Loose Stool Stop: 02/10/21 23:23 Hydroxyzine HCl (Hydroxyzine Hcl 25 Mg Tab) 50 mg PO HSZ PRN PRN Reason: Insomnia Stop: 02/10/21 23:23 Last Admin: 01/11/21 23:42 Dose: 50 mg Documented by: Hydroxyzine HCl (Hydroxyzine Hcl 25 Mg Tab) 25 mg PO Q4H PRN PRN Reason: Anxiety Stop: 02/10/21 23:23 Last Admin: 01/12/21 06:33 Dose: 25 mg Documented by: Magnesium Hydroxide (Magnesium Hydroxide Susp 30 Ml Udc) 30 ml PO DAILY PRN PRN Reason: Constipation Stop: 02/10/21 23:23 Nicotine Polacrilex (Nicotine Polacrilex 2 Mg Gum) 1 piece MT Q2H PRN PRN Reason: Smoking Cessation Stop: 02/10/21 18:47 Sodium Chloride (Sodium Chloride 0.65% Na Soln 45 Ml ([place])) 1 - 2 sprays NA PRN PRN PRN Reason: Nasal Dryness/Congestion Stop: 02/10/21 23:23
[2021-01-12] MEDS ORDERED: QUEtiapine FUMARATE 25 MG TABLET PO STA (09:49)
[2021-01-12] MEDS: CYANOCOBALAMIN (VITAMIN B-12) 100 MCG TABLET PO SCH (10:32)
[2021-01-12] MEDS: MULTIVITAMIN TAB PO SCH (10:32)
[2021-01-12] MEDS: ESCITALOPRAM OXALATE 10 MG TAB PO SCH (10:32)
[2021-01-12] MEDS: FOLIC ACID 1 MG TAB PO SCH (10:32)
[2021-01-12] MEDS: THIAMINE HCL 100 MG TAB PO SCH (10:33)
[2021-01-12] MEDS ORDERED: haloperidoL 5 MG TAB PO STA (12:00)
[2021-01-12] MEDS ORDERED: haloperidoL 5 MG TAB PO ONE (12:04)
[2021-01-12] MEDS ORDERED: LORazepam 1 MG TAB PO STA (12:27)
[2021-01-12] MEDS: QUEtiapine FUMARATE 25 MG TABLET PO PRN ×2 (17:38→21:23)
[2021-01-12] MEDS: cloNIDine HCL 0.1 MG TAB PO PRN (17:38)
[2021-01-12] MEDS: PRAZOSIN HCL 1 MG CAP PO SCH (21:21)
[2021-01-13] MEDS: hydrOXYzine HCl 25 MG TAB PO PRN ×3 (06:32→17:18)
[2021-01-13] MEDS: ACETAMINOPHEN 325 MG TAB PO PRN ×2 (06:34→12:55)
[2021-01-13 07:55] LABS: Glucose Fasting 100 mg/dl (70-99)
[2021-01-13 08:02] LABS: Chol HDL Ratio 3; Cholesterol 294 mg/dl (0-200); HDL Cholesterol 92 mg/dl; LDL Cholesterol Calculated 188 mg/dl; Triglycerides 72 mg/dl (0-150); VLDL Cholesterol 14 mg/dl
[2021-01-13] MEDS: CYANOCOBALAMIN (VITAMIN B-12) 100 MCG TABLET PO SCH (08:52)
[2021-01-13] MEDS: ESCITALOPRAM OXALATE 10 MG TAB PO SCH (08:53)
[2021-01-13] MEDS: THIAMINE HCL 100 MG TAB PO SCH (08:54)
[2021-01-13] MEDS: MULTIVITAMIN TAB PO SCH (08:54)
[2021-01-13] MEDS: FOLIC ACID 1 MG TAB PO SCH (08:54)
[2021-01-13] MEDS: QUEtiapine FUMARATE 25 MG TABLET PO PRN (12:26)
[2021-01-13] MEDS: cloNIDine HCL 0.1 MG TAB PO PRN (12:55)
[2021-01-13] MEDS ORDERED: OLANZapine 5 MG TABLET PO STA (14:20)
[2021-01-13] MEDS ORDERED: LORazepam 1 MG TAB PO PRN (14:48)
--- NOTE | 2021-01-13 15:13 | Psychiatric Progress Note ---
Date of Service January 13, 2021 Impression / Recommendations Impression 40 yo female with a history of depression and anxiety, transferred from rehab for emergent SI, bizarre behavior during treatment for opiate dependence. Patient is believed to be suffering from a decompensation of bipolar disorder. (1) Bipolar 1 disorder: 01/13/21--patient was able to acknowledge current psychotic symptoms in the context of her reported bipolar disorder. We will continue to obtain records from outside providers. Patient was administered a one-time dose of Zyprexa 5 mg p.o. To good effect, will proceed with Zyprexa 5 mg p.o. twice daily to target psychosis. 01/12/21--The patient was admitted to the [facility] ([facility]) on q15 min checks (behavioral with suicide precautions) for safety. The patient will participate in group, recreational, and milieu therapies and will be offered additional individual and family sessions as clinically appropriate. Haldol 5 mg po X1 now, MNPR as cannot tolerate roommate due to psychosis. Was given am meds (antidepressants) at half or less of am doses due to concerns about possible bipolar mixed episode. Now relates aud ellis so will hold am dose of Wellbutrin. Will initiate standing antipsychotic/mood stabilizer when able to get consent, in meantime will order am fasting metabolic labs. (2) Opiate dependence, continuous: 01/13/21--substance use not addressed at this time due to patient's current level of psychosis 01/12/21-- currently in early remission following suboxone taper, will return to rehab when psychiatrically stable. Unable to participate in brief intervention at this time. (3) Thyroid nodule incidentally noted on imaging study: 01/12/21--incidental finding on c-spine CT of calcified nodules, will need non-urgent US as outpatient. Inventory Assets Strengths: family support Needs: stability, Risk Factors Assessment Male: No : No Mental Health Diagnoses: Yes Substance Use Disorders: Yes Protective Factors Assessment Employed: No Interval History Chief Complaint "[I just do not know, my head is all over the place]". Review of Systems Sleep Information Total Hours of Sleep: 7.5 Sleep Comments: pt given vistaril per rn. pt on q-15 minute checks Meal Information Percent Meal Consumed - Breakfast: 0 Percent Meal Consumed - Lunch: 50 Percent Meal Consumed - Dinner: 50 Nutrition Comment: pt. declines breakfast at this time but asks that it is held for later. Subjective Subjective Patient was seen & assessed and interval progress reviewed with treatment team nursing and social work. Patient is a 40-year-old female who was brought in from rehab for bizarre behavior. Upon evaluation today patient asked typewriters functional tester to return. She stated that the nurses had just asked her questions and that her head was spinning. Welfare Specialist returned approximately 2 hours later during which patient was more calm and co operative. Patient went on to detail that this is her approximately fourth inpatient hospitalization for bipolar disorder. She further goes on to say that she has been using drugs as a way of covering up her symptoms and she is fearful that if she does not get the retreatment she will go back to using drugs. Patient at this time is acknowledging auditory hallucinations in the form of self disparaging voices. She also acknowledges paranoia as well as anxiety. Patient is agreeable to this time for medications to target her psychosis. She states that she has been on numerous medications in the past and is unable to state which ones have worked for her aside from illicit drugs. Physical Exam Psychiatric Orientation: alert Apperance: + disheveled Eye Contact: + poor eye contact Motor Behavior: + psychomotor agitation (rocking) Speech: + pressured speech (when does speak, holding head as if responding to internal stimuli.) Affect: + depressed affect Mood: + depressed mood Thought Process: + tangential thought process Thought Content: + paranoid and + persecution Homicidal Thoughts: denies homicidal thoughts Hallucinations: + auditory hallucinations; no visual hallucinations Cognition: language grossly intact; + recent memory not intact and + attention not intact Estimated Intelligence: consistent with education level Insight: + poor insight Judgement: + limited judgement Vital Signs (Past 24 Hours) Last Vital Signs Temp 36.7 C 01/13/21 06:43 Pulse 78 01/13/21 12:33 Resp 16 01/13/21 06:43 BP 108/70 01/13/21 12:33 Pulse Ox 100 01/11/21 23:33 Results & Data ([facility]) Laboratory Results Laboratory Results - last 24 hr 01/13/21 07:15 Fasting Glucose 100 H Triglycerides 72 Cholesterol 294 H LDL Cholesterol, Calc 188 VLDL Cholesterol, Calc 14 HDL Cholesterol 92 Cholesterol/HDL Ratio 3 Current Inpatient Medications Current Inpatient Medications: Current Inpatient Medications Acetaminophen (Acetaminophen 325 Mg Tab) 650 mg PO Q4H PRN PRN Reason: Headache or Minor Fever Stop: 02/10/21 23:23 Last Admin: 01/13/21 12:55 Dose: 650 mg Documented by: Al Hydrox/Mg Hydrox/Simethicone (Aluminum/Magnesium Susp 30 Ml Udc) 30 ml PO Q4H PRN PRN Reason: GI Upset Stop: 02/10/21 23:23 Bismuth Subsalicylate (Bismuth Subsalicylate Liqd 236 Ml) 15 ml PO PRN PRN PRN Reason: Loose Stool Stop: 02/10/21 23:23 Clonidine HCl (Clonidine Hcl 0.1 Mg Tab) 0.1 mg PO TID PRN PRN Reason: Anxiety/Insomnia Stop: 02/11/21 09:50 Last Admin: 01/13/21 12:55 Dose: 0.1 mg Documented by: Cyanocobalamin (Cyanocobalamin (Vitamin B-12) 100 Mcg Tablet) [facility] Stop: 02/11/21 09:59 Last Admin: 01/13/21 08:52 Dose: 100 mcg Documented by: Diclofenac Sodium (Diclofenac Sodium 25 Mg Tabdr) 50 mg PO TID PRN PRN Reason: pain Stop: 02/11/21 13:59 Escitalopram Oxalate (Escitalopram Oxalate 10 Mg Tab) [facility] Stop: 02/11/21 09:59 Last Admin: 01/13/21 08:53 Dose: 10 mg Documented by: Folic Acid (Folic Acid 1 Mg Tab) 1 mg PO QAM [facility] Stop: 02/11/21 09:59 Last Admin: 01/13/21 08:54 Dose: 1 mg Documented by: Hydroxyzine HCl (Hydroxyzine Hcl 25 Mg Tab) 50 mg PO HSZ PRN PRN Reason: Insomnia Stop: 02/10/21 23:23 Last Admin: 01/12/21 21:23 Dose: 50 mg Documented by: Hydroxyzine HCl (Hydroxyzine Hcl 25 Mg Tab) 25 mg PO Q4H PRN PRN Reason: Anxiety Stop: 02/10/21 23:23 Last Admin: 01/13/21 12:26 Dose: 25 mg Documented by: Magnesium Hydroxide (Magnesium Hydroxide Susp 30 Ml Udc) 30 ml PO DAILY PRN PRN Reason: Constipation Stop: 02/10/21 23:23 Multivitamins (Multivitamin Tab) 1 tab PO QAM [facility] Stop: 02/11/21 09:54 Last Admin: 01/13/21 08:54 Dose: 1 tab Documented by: Nicotine Polacrilex (Nicotine Polacrilex 2 Mg Gum) 1 piece MT Q2H PRN PRN Reason: Smoking Cessation Stop: 02/10/21 18:47 Prazosin HCl (Prazosin Hcl 1 Mg Cap) 12 mg PO [facility] Stop: 02/11/21 21:59 Last Admin: 01/12/21 21:21 Dose: 12 mg Documented by: Quetiapine Fumarate (Quetiapine Fumarate 25 Mg Tablet) 25 mg PO Q4 PRN PRN Reason: Anxiety/Agitation Stop: 02/11/21 11:59 Last Admin: 01/13/21 12:26 Dose: 25 mg Documented by: Sodium Chloride (Sodium Chloride 0.65% Na Soln 45 Ml ([place])) 1 - 2 sprays NA PRN PRN PRN Reason: Nasal Dryness/Congestion Stop: 02/10/21 23:23 Thiamine HCl (Thiamine Hcl 100 Mg Tab) 100 mg PO QAM [facility] Stop: 02/11/21 09:59 Last Admin: 01/13/21 08:54 Dose: 100 mg Documented by:
[2021-01-13] MEDS: DOCUSATE SODIUM 100 MG CAP PO SCH (15:27)
[2021-01-13] MEDS: OLANZapine 5 MG TABLET PO SCH (20:18)
[2021-01-13] MEDS: PRAZOSIN HCL 1 MG CAP PO SCH (20:19)
[2021-01-14] MEDS: MULTIVITAMIN TAB PO SCH (08:48)
[2021-01-14] MEDS: OLANZapine 5 MG TABLET PO SCH ×2 (08:48→21:18)
[2021-01-14] MEDS: DOCUSATE SODIUM 100 MG CAP PO SCH (08:48)
[2021-01-14] MEDS: FOLIC ACID 1 MG TAB PO SCH (08:48)
[2021-01-14] MEDS: CYANOCOBALAMIN (VITAMIN B-12) 100 MCG TABLET PO SCH (08:48)
[2021-01-14] MEDS: THIAMINE HCL 100 MG TAB PO SCH (08:48)
[2021-01-14] MEDS: DICLOFENAC SODIUM 25 MG TABDR PO PRN ×2 (09:16→16:18)
[2021-01-14] MEDS: cloNIDine HCL 0.1 MG TAB PO PRN (09:53)
[2021-01-14] MEDS: hydrOXYzine HCl 25 MG TAB PO PRN (11:16)
[2021-01-14] MEDS: ACETAMINOPHEN 325 MG TAB PO PRN ×2 (12:56→21:17)
[2021-01-14] MEDS ORDERED: OLANZapine 5 MG TABLET PO STA (14:18)
--- NOTE | 2021-01-14 17:32 | Psychiatric Progress Note ---
Date of Service January 14, 2021 Impression / Recommendations Impression 40 yo female with a history of depression and anxiety, transferred from rehab for emergent SI, bizarre behavior during treatment for opiate dependence. Patient is believed to be suffering from a decompensation of bipolar disorder. (1) Bipolar 1 disorder: 01/14/21-- Will continue to uptitrate olanzapine medication. Total daily amount today was 15mg broken up into 3 dosage times. 01/13/21--patient was able to acknowledge current psychotic symptoms in the context of her reported bipolar disorder. We will continue to obtain records from outside providers. Patient was administered a one-time dose of Zyprexa 5 mg p.o. To good effect, will proceed with Zyprexa 5 mg p.o. twice daily to target psychosis. 01/12/21--The patient was admitted to the [facility] ([facility]) on q15 min checks (behavioral with suicide precautions) for safety. The patient will participate in group, recreational, and milieu therapies and will be offered additional individual and family sessions as clinically appropriate. Haldol 5 mg po X1 now, MNPR as cannot tolerate roommate due to psychosis. Was given am meds (antidepressants) at half or less of am doses due to concerns about possible bipolar mixed episode. Now relates aud ellis so will hold am dose of Wellbutrin. Will initiate standing antipsychotic/mood stabilizer when able to get consent, in meantime will order am fasting metabolic labs. (2) Opiate dependence, continuous: 01/14/21--The patient's substance use history suggests problematic substance use. Brief intervention was offered and accepted. Intervention was greater than 5 min in length and included assessing readiness to quit, advice on how to reduce or abstain, and to set a specific goal for this hospitalization. clerical office worker will also assist in anticipating barriers to sobriety and in problem- solving for solutions to those problems while arranging for referral to appropriate treatment. The patient is in precontemplation stage with regards to transtheoretical model of change. The patient is advised to decrease consumption due to depressant effects and risk of interaction with prescription medications. The patient agreed to maintin sobriety and will be provided with recovery materials to continue to educate self on how to cope with their condition without abusing substances. 01/13/21--substance use not addressed at this time due to patient's current level of psychosis 01/12/21-- currently in early remission following suboxone taper, will return to rehab when psychiatrically stable. Unable to participate in brief intervention at this time. (3) Thyroid nodule incidentally noted on imaging study: 01/12/21--incidental finding on c-spine CT of calcified nodules, will need non-urgent US as outpatient. Inventory Assets Strengths: family support Needs: stability, Risk Factors Assessment Male: No : No Mental Health Diagnoses: Yes Substance Use Disorders: Yes Protective Factors Assessment Employed: No Interval History Chief Complaint "That medication was very helpful". Review of Systems Sleep Information Total Hours of Sleep: 7.5 Sleep Comments: pt given vistaril per rn. pt on q-15 minute checks Meal Information Percent Meal Consumed - Breakfast: 25 Percent Meal Consumed - Lunch: 50 Percent Meal Consumed - Dinner: 80 Nutrition Comment: pt. declines breakfast at this time but asks that it is held for later. Subjective Subjective Patient was seen & assessed and interval progress reviewed with treatment team nursing and social work Patient states that the medication given yesterday was helpful for her to organize her thoughts. She stated that the medication helps to reduce her auditory hallucinations. Patient is still reporting some degree of paranoia as well as some disparaging auditory hallucinations that speak to her predominantly at night. Denies any suicidal or homicidal ideation at this time. Patient remains committed to being free from substances. Is interested in rehab following discharge. Physical Exam Psychiatric Orientation: alert Apperance: + disheveled Eye Contact: + poor eye contact Motor Behavior: + psychomotor agitation (rocking) Speech: + pressured speech (when does speak, holding head as if responding to internal stimuli.) Affect: + depressed affect Mood: + depressed mood Thought Process: + tangential thought process Thought Content: + paranoid and + persecution Homicidal Thoughts: denies homicidal thoughts Hallucinations: + auditory hallucinations; no visual hallucinations Cognition: language grossly intact; + recent memory not intact and + attention not intact Estimated Intelligence: consistent with education level Insight: + poor insight Judgement: + limited judgement Vital Signs (Past 24 Hours) Last Vital Signs Temp 36.6 C 01/14/21 06:27 Pulse 86 01/14/21 09:53 Resp 16 01/14/21 06:27 BP 120/82 01/14/21 09:53 Pulse Ox 100 01/11/21 23:33 Results & Data ([facility]) Current Inpatient Medications Current Inpatient Medications: Current Inpatient Medications Acetaminophen (Acetaminophen 325 Mg Tab) 650 mg PO Q4H PRN PRN Reason: Headache or Minor Fever Stop: 02/10/21 23:23 Last Admin: 01/14/21 12:56 Dose: 650 mg Documented by: Al Hydrox/Mg Hydrox/Simethicone (Aluminum/Magnesium Susp 30 Ml Udc) 30 ml PO Q4H PRN PRN Reason: GI Upset Stop: 02/10/21 23:23 Bismuth Subsalicylate (Bismuth Subsalicylate Liqd 236 Ml) 15 ml PO PRN PRN PRN Reason: Loose Stool Stop: 02/10/21 23:23 Clonidine HCl (Clonidine Hcl 0.1 Mg Tab) 0.1 mg PO TID PRN PRN Reason: Anxiety/Insomnia Stop: 02/11/21 09:50 Last Admin: 01/14/21 09:53 Dose: 0.1 mg Documented by: Cyanocobalamin (Cyanocobalamin (Vitamin B-12) 100 Mcg Tablet) 100 mcg PO QAM [facility] Stop: 02/11/21 09:59 Last Admin: 01/14/21 08:48 Dose: 100 mcg Documented by: Diclofenac Sodium (Diclofenac Sodium 25 Mg Tabdr) 50 mg PO TID PRN PRN Reason: pain Stop: 02/11/21 13:59 Last Admin: 01/14/21 16:18 Dose: 50 mg Documented by: Escitalopram Oxalate (Escitalopram Oxal[facility] 10 Mg Tab) [facility] [place]: 02/11/21 09:59 Last Admin: 01/13/21 08:53 Dose: 10 mg Documented by: Folic Acid (Folic Acid 1 Mg Tab) [facility] Stop: 02/11/21 09:59 Last Admin: 01/14/21 08:48 Dose: 1 mg Documented by: Hydroxyzine HCl (Hydroxyzine Hcl 25 Mg Tab) 50 mg PO HSZ PRN PRN Reason: Insomnia Stop: 02/10/21 23:23 Last Admin: 01/12/21 21:23 Dose: 50 mg Documented by: Hydroxyzine HCl (Hydroxyzine Hcl 25 Mg Tab) 25 mg PO Q4H PRN PRN Reason: Anxiety Stop: 02/10/21 23:23 Last Admin: 01/14/21 11:16 Dose: 25 mg Documented by: Magnesium Hydroxide (Magnesium Hydroxide Susp 30 Ml Udc) 30 ml PO DAILY PRN PRN Reason: Constipation Stop: 02/10/21 23:23 Multivitamins (Multivitamin Tab) 1 tab PO QAM [facility] Stop: 02/11/21 09:54 Last Admin: 01/14/21 08:48 Dose: 1 tab Documented by: Nicotine Polacrilex (Nicotine Polacrilex 2 Mg Gum) 1 piece MT Q2H PRN PRN Reason: Smoking Cessation Stop: 02/10/21 18:47 Prazosin HCl (Prazosin Hcl 1 Mg Cap) 12 mg PO HS [facility] Stop: 02/11/21 21:59 Last Admin: 01/13/21 20:19 Dose: 12 mg Documented by: Quetiapine Fumarate (Quetiapine Fumarate 25 Mg Tablet) 25 mg PO Q4 PRN PRN Reason: Anxiety/Agitation Stop: 02/11/21 11:59 Last Admin: 01/13/21 12:26 Dose: 25 mg Documented by: Sodium Chloride (Sodium Chloride 0.65% Na Soln 45 Ml ([place])) 1 - 2 sprays NA PRN PRN PRN Reason: Nasal Dryness/Congestion Stop: 02/10/21 23:23 Thiamine HCl (Thiamine Hcl 100 Mg Tab) 100 mg PO QAM [facility] Stop: 02/11/21 09:59 Last Admin: 01/14/21 08:48 Dose: 100 mg Documented by:
[2021-01-14] MEDS ORDERED: TROLAMINE SALICYLATE 10% CRM 255 APPLN/85 GM TUBE EXT PRN (18:11)
[2021-01-14] MEDS: PRAZOSIN HCL 1 MG CAP PO SCH (21:18)
[2021-01-15] MEDS: DICLOFENAC SODIUM 25 MG TABDR PO PRN ×2 (06:54→18:03)
[2021-01-15] MEDS: FOLIC ACID 1 MG TAB PO SCH (07:30)
[2021-01-15] MEDS: DOCUSATE SODIUM 100 MG CAP PO SCH (07:30)
[2021-01-15] MEDS: CYANOCOBALAMIN (VITAMIN B-12) 100 MCG TABLET PO SCH (07:30)
[2021-01-15] MEDS: THIAMINE HCL 100 MG TAB PO SCH (07:31)
[2021-01-15] MEDS: MULTIVITAMIN TAB PO SCH (07:31)
[2021-01-15] MEDS: OLANZapine 5 MG TABLET PO SCH (07:31)
[2021-01-15] MEDS ORDERED: OLANZapine 5 MG TABLET PO ONE (08:30)
[2021-01-15] MEDS: cloNIDine HCL 0.1 MG TAB PO PRN ×2 (08:47→15:29)
--- NOTE | 2021-01-15 13:07 | Psychiatric Progress Note ---
Date of Service January 15, 2021 Impression / Recommendations Impression 40 yo female with a history of depression and anxiety, transferred from rehab for emergent SI, bizarre behavior during treatment for opiate dependence. Patient is believed to be suffering from a decompensation of bipolar disorder. (1) Bipolar 1 disorder: 01/15/2021--we will continue with up titration of olanzapine. Total daily amount now at 20 mg broken up into 10 mg twice daily. 01/14/21-- Will continue to uptitrate olanzapine medication. Total daily amount today was 15mg broken up into 3 dosage times. 01/13/21--patient was able to acknowledge current psychotic symptoms in the context of her reported bipolar disorder. We will continue to obtain records from outside providers. Patient was administered a one-time dose of Zyprexa 5 mg p.o. To good effect, will proceed with Zyprexa 5 mg p.o. twice daily to target psychosis. 01/12/21--The patient was admitted to the [facility] ([facility]) on q15 min checks (behavioral with suicide precautions) for safety. The patient will participate in group, recreational, and milieu therapies and will be offered additional individual and family sessions as clinically appropriate. Haldol 5 mg po X1 now, MNPR as cannot tolerate roommate due to psychosis. Was given am meds (antidepressants) at half or less of am doses due to concerns about possible bipolar mixed episode. Now relates aud ellis so will hold am dose of Wellbutrin. Will initiate standing antipsychotic/mood stabilizer when able to get consent, in meantime will order am fasting metabolic labs. (2) Opiate dependence, continuous: 01/14/21--The patient's substance use history suggests problematic substance use. Brief intervention was offered and accepted. Intervention was greater than 5 min in length and included assessing readiness to quit, advice on how to reduce or abstain, and to set a specific goal for this hospitalization. darkroom worker will also assist in anticipating barriers to sobriety and in problem- solving for solutions to those problems while arranging for referral to appropriate treatment. The patient is in precontemplation stage with regards to transtheoretical model of change. The patient is advised to decrease consumption due to depressant effects and risk of interaction with prescription medications. The patient agreed to maintin sobriety and will be provided with recovery materials to continue to educate self on how to cope with their condition without abusing substances. 01/13/21--substance use not addressed at this time due to patient's current level of psychosis 01/12/21-- currently in early remission following suboxone taper, will return to rehab when psychiatrically stable. Unable to participate in brief intervention at this time. (3) Thyroid nodule incidentally noted on imaging study: 01/12/21--incidental finding on c-spine CT of calcified nodules, will need non-urgent US as outpatient. Inventory Assets Strengths: family support Needs: stability, Risk Factors Assessment Male: No : No Mental Health Diagnoses: Yes Substance Use Disorders: Yes Protective Factors Assessment Employed: No Interval History Chief Complaint "Thank you , The voices are getting better but my back hurts". Review of Systems Sleep Information Total Hours of Sleep: 7.5 Sleep Comments: pt given vistaril per rn. pt on q-15 minute checks Meal Information Percent Meal Consumed - Breakfast: 75 Percent Meal Consumed - Lunch: 50 Percent Meal Consumed - Dinner: 80 Nutrition Comment: pt. declines breakfast at this time but asks that it is held for later. Subjective Subjective Patient was seen & assessed and interval progress reviewed with treatment team nursing and social work Patient reports improvement in her voices and paranoia. Says they are not as distressing to her as they were previously but states that they are still present at this time. Patient also complains of occasionally with anxiety and was told that the medication will help to treat this as well. Patient continues to complain of back pain and states it was formally worked up at previous hospital before presenting. Patient states that she was referred for physical rehab. She is asking for nonnarcotic agents that can assist in her back pain at this time and is describing a sciatica-like picture. She is agreeable to try gabapentin and baclofen. Physical Exam Psychiatric Orientation: alert Apperance: + disheveled Eye Contact: + poor eye contact Motor Behavior: + psychomotor agitation (rocking) Speech: + pressured speech (when does speak, holding head as if responding to internal stimuli.) Affect: + depressed affect Mood: + depressed mood Thought Process: + tangential thought process Thought Content: + paranoid and + persecution Homicidal Thoughts: denies homicidal thoughts Hallucinations: + auditory hallucinations; no visual hallucinations Cognition: language grossly intact; + recent memory not intact and + attention not intact Estimated Intelligence: consistent with education level Insight: + poor insight Judgement: + limited judgement Vital Signs (Past 24 Hours) Last Vital Signs Temp 36.9 C 01/15/21 06:34 Pulse 88 01/15/21 06:35 Resp 16 01/15/21 06:34 BP 124/83 01/15/21 06:35 Pulse Ox 100 01/11/21 23:33 Results & Data ([facility]) Current Inpatient Medications Current Inpatient Medications: Current Inpatient Medications Acetaminophen (Acetaminophen 325 Mg Tab) 650 mg PO Q4H PRN PRN Reason: Headache or Minor Fever Stop: 02/10/21 23:23 Last Admin: 01/14/21 21:17 Dose: 650 mg Documented by: Al Hydrox/Mg Hydrox/Simethicone (Aluminum/Magnesium Susp 30 Ml Udc) 30 ml PO Q4H PRN PRN Reason: GI Upset Stop: 02/10/21 23:23 Bismuth Subsalicylate (Bismuth Subsalicylate Liqd 236 Ml) 15 ml PO PRN PRN PRN Reason: Loose Stool Stop: 02/10/21 23:23 Clonidine HCl (Clonidine Hcl 0.1 Mg Tab) 0.1 mg PO TID PRN PRN Reason: Anxiety/Insomnia Stop: 02/11/21 09:50 Last Admin: 01/15/21 08:47 Dose: 0.1 mg Documented by: Cyanocobalamin (Cyanocobalamin (Vitamin B-12) 100 Mcg Tablet) 100 mcg PO QAM [facility] Stop: 02/11/21 09:59 Last Admin: 01/15/21 07:30 Dose: 100 mcg Documented by: Diclofenac Sodium (Diclofenac Sodium 25 Mg Tabdr) 50 mg PO TID PRN PRN Reason: pain Stop: 02/11/21 13:59 Last Admin: 01/15/21 06:54 Dose: 50 mg Documented by: Escitalopram Oxalate (Escitalopram Oxalate 10 Mg Tab) 10 mg PO QAM [facility] Stop: 02/11/21 09:59 Last Admin: 01/13/21 08:53 Dose: 10 mg Documented by: Folic Acid (Folic Acid 1 Mg Tab) 1 mg PO QAM [facility] Stop: 02/11/21 09:59 Last Admin: 01/15/21 07:30 Dose: 1 mg Documented by: Hydroxyzine HCl (Hydroxyzine Hcl 25 Mg Tab) 50 mg PO HSZ PRN PRN Reason: Insomnia Stop: 02/10/21 23:23 Last Admin: 01/12/21 21:23 Dose: 50 mg Documented by: Hydroxyzine HCl (Hydroxyzine Hcl 25 Mg Tab) 25 mg PO Q4H PRN PRN Reason: Anxiety Stop: 02/10/21 23:23 Last Admin: 01/14/21 11:16 Dose: 25 mg Documented by: Magnesium Hydroxide (Magnesium Hydroxide Susp 30 Ml Udc) 30 ml PO DAILY PRN PRN Reason: Constipation Stop: 02/10/21 23:23 Multivitamins (Multivitamin Tab) 1 tab PO QAM [facility] Stop: 02/11/21 09:54 Last Admin: 01/15/21 07:31 Dose: 1 tab Documented by: Nicotine Polacrilex (Nicotine Polacrilex 2 Mg Gum) 1 piece MT Q2H PRN PRN Reason: Smoking Cessation Stop: 02/10/21 18:47 Last Admin: 01/14/21 18:03 Dose: 1 piece Documented by: Prazosin HCl (Prazosin Hcl 1 Mg Cap) 12 mg PO HS [facility] Stop: 02/11/21 21:59 Last Admin: 01/14/21 21:18 Dose: 12 mg Documented by: Quetiapine Fumarate (Quetiapine Fumarate 25 Mg Tablet) 25 mg PO Q4 PRN PRN Reason: Anxiety/Agitation Stop: 02/11/21 11:59 Last Admin: 01/13/21 12:26 Dose: 25 mg Documented by: Sodium Chloride (Sodium Chloride 0.65% Na Soln 45 Ml ([place])) 1 - 2 sprays NA PRN PRN PRN Reason: Nasal Dryness/Congestion Stop: 02/10/21 23:23 Thiamine HCl (Thiamine Hcl 100 Mg Tab) 100 mg PO QAM [facility] Stop: 02/11/21 09:59 Last Admin: 01/15/21 07:31 Dose: 100 mg Documented by:
[2021-01-15] MEDS: hydrOXYzine HCl 25 MG TAB PO PRN ×3 (13:19→21:57)
[2021-01-15] MEDS: GABAPENTIN 100 MG CAP PO SCH ×2 (14:26→21:16)
[2021-01-15] MEDS: BACLOFEN 10 MG TAB PO PRN ×2 (14:26→18:02)
[2021-01-15] MEDS: OLANZapine 10 MG TAB PO SCH (21:16)
[2021-01-15] MEDS: PRAZOSIN HCL 1 MG CAP PO SCH (21:17)
[2021-01-15] MEDS: ALUMINUM/MAGNESIUM SUSP 30 ML UDC PO PRN (22:12)
[2021-01-16] MEDS: ACETAMINOPHEN 325 MG TAB PO PRN (01:21)
[2021-01-16] MEDS: hydrOXYzine HCl 25 MG TAB PO PRN ×3 (01:59→20:59)
[2021-01-16 03:36] LABS: 7-Aminoclonaz, Confirm NEGATIVE ng/mL (<25); Hydro-Alp Ur, GC/MS NEGATIVE ng/mL (<25); Hydroxyethylflurazepam, Conf NEGATIVE ng/mL (<50); Hydroxymidazolam Ur, GC/MS NEGATIVE ng/mL (<50); Hydroxytriazolam NEGATIVE ng/mL (<50); Lorazepam, Ur GC/MS NEGATIVE ng/mL (<50); MDA negative; MDEA negative; MDMA (Ecstasy) Urine, Confirm negative; Nordiazepam, Confirm 272 ng/mL (<50); Oxazepam Ur, GC/MS 1170 ng/mL (<50); Temazepam, Confirm 1310 ng/mL (<50)
[2021-01-16] MEDS: BACLOFEN 10 MG TAB PO PRN ×4 (05:16→20:59)
[2021-01-16] MEDS: OLANZapine 10 MG TAB PO SCH ×2 (08:00→20:51)
[2021-01-16] MEDS: GABAPENTIN 100 MG CAP PO SCH ×3 (08:00→20:51)
[2021-01-16] MEDS: CYANOCOBALAMIN (VITAMIN B-12) 100 MCG TABLET PO SCH (08:00)
[2021-01-16] MEDS: DOCUSATE SODIUM 100 MG CAP PO SCH (08:00)
[2021-01-16] MEDS: FOLIC ACID 1 MG TAB PO SCH (08:00)
[2021-01-16] MEDS: THIAMINE HCL 100 MG TAB PO SCH (08:00)
[2021-01-16] MEDS: MULTIVITAMIN TAB PO SCH (08:01)
[2021-01-16] MEDS: cloNIDine HCL 0.1 MG TAB PO PRN ×2 (11:07→16:31)
--- NOTE | 2021-01-16 12:13 | Psychiatric Progress Note ---
Date of Service January 16, 2021 Impression / Recommendations Impression 40 yo female with a history of depression and anxiety, transferred from rehab for emergent SI, bizarre behavior during treatment for opiate dependence. Patient is believed to be suffering from a decompensation of bipolar disorder. (1) Bipolar 1 disorder: 01/15/2021--we will continue with up titration of olanzapine. Total daily amount now at 20 mg broken up into 10 mg twice daily. 01/14/21-- Will continue to uptitrate olanzapine medication. Total daily amount today was 15mg broken up into 3 dosage times. 01/13/21--patient was able to acknowledge current psychotic symptoms in the context of her reported bipolar disorder. We will continue to obtain records from outside providers. Patient was administered a one-time dose of Zyprexa 5 mg p.o. To good effect, will proceed with Zyprexa 5 mg p.o. twice daily to target psychosis. 01/12/21--The patient was admitted to the [facility] ([facility]) on q15 min checks (behavioral with suicide precautions) for safety. The patient will participate in group, recreational, and milieu therapies and will be offered additional individual and family sessions as clinically appropriate. Haldol 5 mg po X1 now, MNPR as cannot tolerate roommate due to psychosis. Was given am meds (antidepressants) at half or less of am doses due to concerns about possible bipolar mixed episode. Now relates aud ellis so will hold am dose of Wellbutrin. Will initiate standing antipsychotic/mood stabilizer when able to get consent, in meantime will order am fasting metabolic labs. (2) Opiate dependence, continuous: 01/14/21--The patient's substance use history suggests problematic substance use. Brief intervention was offered and accepted. Intervention was greater than 5 min in length and included assessing readiness to quit, advice on how to reduce or abstain, and to set a specific goal for this hospitalization. marquetry worker will also assist in anticipating barriers to sobriety and in problem- solving for solutions to those problems while arranging for referral to appropriate treatment. The patient is in precontemplation stage with regards to transtheoretical model of change. The patient is advised to decrease consumption due to depressant effects and risk of interaction with prescription medications. The patient agreed to maintin sobriety and will be provided with recovery materials to continue to educate self on how to cope with their condition without abusing substances. 01/13/21--substance use not addressed at this time due to patient's current level of psychosis 01/12/21-- currently in early remission following suboxone taper, will return to rehab when psychiatrically stable. Unable to participate in brief intervention at this time. (3) Thyroid nodule incidentally noted on imaging study: 01/12/21--incidental finding on c-spine CT of calcified nodules, will need non-urgent US as outpatient. Inventory Assets Strengths: family support Needs: stability, Risk Factors Assessment Male: No : No Mental Health Diagnoses: Yes Substance Use Disorders: Yes Protective Factors Assessment Employed: No Interval History Chief Complaint "I am doing good thank you". Review of Systems Sleep Information Total Hours of Sleep: 4.75 Sleep Comments: pt given vistaril per rn. pt on q-15 minute checks Meal Information Percent Meal Consumed - Breakfast: 50 Percent Meal Consumed - Lunch: 100 Percent Meal Consumed - Dinner: 75 Nutrition Comment: pt. declines breakfast at this time but asks that it is held for later. Subjective Subjective Patient was seen & assessed and interval progress reviewed with treatment team nursing and social work Patient has been calm and cooperative on the unit. Does complain complain of occasional back pain, but takes as needed's with good relief. Reports a strong appetite and finishing her meals. Patient states that her sleep is also starting to improve. Patient continues to deny any suicidal ideation or trouble with her mood. She does complain of occasional intrusive thoughts but states that the medication is working well to control these. Physical Exam Psychiatric Orientation: alert Apperance: appropriately groomed Eye Contact: good eye contact Motor Behavior: no abnormal motor movements Speech: normal rate/rhythm/volume of speech Affect: euthymic affect Mood: no depressed mood Thought Process: goal directed thought process Thought Content: + paranoid and reality based without delusions Suicidal Thoughts: denies suicidal thoughts Homicidal Thoughts: denies homicidal thoughts Hallucinations: + auditory hallucinations; no visual hallucinations Cognition: language grossly intact; + recent memory not intact and + attention not intact Estimated Intelligence: consistent with education level Insight: + fair insight Judgement: + fair judgement Vital Signs (Past 24 Hours) Last Vital Signs Temp 37.0 C 01/16/21 05:49 Pulse 102 H 01/16/21 05:49 Resp 16 01/16/21 05:49 BP 123/81 01/16/21 05:49 Pulse Ox 100 01/11/21 23:33 Results & Data ([facility]) Laboratory Results Laboratory Results - last 24 hr 01/11/21 17:20 Urine MDEA negative MDMA negative Urine MDMA negative U OH-Alprazolam Confrm NEGATIVE 7-Amino Clonazepam NEGATIVE Ur Nordiazepam Confirm 272 H U OH-ethylflurazepam NEGATIVE U Lorazepam Cnf GC/MS NEGATIVE U Oxazepam Confm GC/MS 1170 H Ur Temazepam Confirm 1310 H U OH-Triazolam Confirm NEGATIVE U OH-Midazolam Confirm NEGATIVE Drug Screen Comment SEE NOTE Current Inpatient Medications Current Inpatient Medications: Current Inpatient Medications Acetaminophen (Acetaminophen 325 Mg Tab) 650 mg PO Q4H PRN PRN Reason: Headache or Minor Fever Stop: 02/10/21 23:23 Last Admin: 01/16/21 01:21 Dose: 650 mg Documented by: Al Hydrox/Mg Hydrox/Simethicone (Aluminum/Magnesium Susp 30 Ml Udc) 30 ml PO Q4H PRN PRN Reason: GI Upset Stop: 02/10/21 23:23 Last Admin: 01/15/21 22:12 Dose: 30 ml Documented by: Bismuth Subsalicylate (Bismuth Subsalicylate Liqd 236 Ml) 15 ml PO PRN PRN PRN Reason: Loose Stool Stop: 02/10/21 23:23 Clonidine HCl (Clonidine Hcl 0.1 Mg Tab) 0.1 mg PO TID PRN PRN Reason: Anxiety/Insomnia Stop: 02/11/21 09:50 Last Admin: 01/16/21 11:07 Dose: 0.1 mg Documented by: Cyanocobalamin (Cyanocobalamin (Vitamin B-12) 100 Mcg Tablet) 100 mcg PO QAM TERESSA Stop: 02/11/21 09:59 Last Admin: 01/16/21 08:00 Dose: 100 mcg Documented by: Diclofenac Sodium (Diclofenac Sodium 25 Mg Tabdr) 50 mg PO TID PRN PRN Reason: pain Stop: 02/11/21 13:59 Last Admin: 01/15/21 18:03 Dose: 50 mg Documented by: Escitalopram Oxalate (Escitalopram Oxalate 10 Mg Tab) 10 mg PO QAM TERESSA Stop: 02/11/21 09:59 Last Admin: 01/13/21 08:53 Dose: 10 mg Documented by: Folic Acid (Folic Acid 1 Mg Tab) 1 mg PO [facility] Stop: 02/11/21 09:59 Last Admin: 01/16/21 08:00 Dose: 1 mg Documented by: Hydroxyzine HCl (Hydroxyzine Hcl 25 Mg Tab) 50 mg PO HSZ PRN PRN Reason: Insomnia Stop: 02/10/21 23:23 Last Admin: 01/16/21 01:59 Dose: 50 mg Documented by: Hydroxyzine HCl (Hydroxyzine Hcl 25 Mg Tab) 25 mg PO Q4H PRN PRN Reason: Anxiety Stop: 02/10/21 23:23 Last Admin: 01/15/21 17:55 Dose: 25 mg Documented by: Magnesium Hydroxide (Magnesium Hydroxide Susp 30 Ml Udc) 30 ml PO DAILY PRN PRN Reason: Constipation Stop: 02/10/21 23:23 Multivitamins (Multivitamin Tab) 1 tab PO [facility] Stop: 02/11/21 09:54 Last Admin: 01/16/21 08:01 Dose: 1 tab Documented by: Nicotine Polacrilex (Nicotine Polacrilex 2 Mg Gum) 1 piece MT Q2H PRN PRN Reason: Smoking Cessation Stop: 02/10/21 18:47 Last Admin: 01/14/21 18:03 Dose: 1 piece Documented by: Prazosin HCl (Prazosin Hcl 1 Mg Cap) 12 mg PO HS [facility] Stop: 02/11/21 21:59 Last Admin: 01/15/21 21:17 Dose: 12 mg Documented by: Quetiapine Fumarate (Quetiapine Fumarate 25 Mg Tablet) 25 mg PO Q4 PRN PRN Reason: Anxiety/Agitation Stop: 02/11/21 11:59 Last Admin: 01/13/21 12:26 Dose: 25 mg Documented by: Sodium Chloride (Sodium Chloride 0.65% Na Soln 45 Ml ([place])) 1 - 2 sprays NA PRN PRN PRN Reason: Nasal Dryness/Congestion Stop: 02/10/21 23:23 Last Admin: 01/15/21 21:56 Dose: 2 sprays Documented by: Thiamine HCl (Thiamine Hcl 100 Mg Tab) 100 mg PO [facility] Stop: 02/11/21 09:59 Last Admin: 01/16/21 08:00 Dose: 100 mg Documented by:
[2021-01-16] MEDS: PRAZOSIN HCL 1 MG CAP PO SCH (20:51)
[2021-01-17] MEDS: hydrOXYzine HCl 25 MG TAB PO PRN ×3 (00:33→19:05)
[2021-01-17] MEDS: DICLOFENAC SODIUM 25 MG TABDR PO PRN ×2 (00:40→17:51)
[2021-01-17] MEDS: cloNIDine HCL 0.1 MG TAB PO PRN ×2 (06:40→17:52)
[2021-01-17] MEDS: BACLOFEN 10 MG TAB PO PRN ×3 (06:51→20:11)
[2021-01-17] MEDS: OLANZapine 10 MG TAB PO SCH (08:22)
[2021-01-17] MEDS: FOLIC ACID 1 MG TAB PO SCH (08:23)
[2021-01-17] MEDS: CYANOCOBALAMIN (VITAMIN B-12) 100 MCG TABLET PO SCH (08:23)
[2021-01-17] MEDS: GABAPENTIN 100 MG CAP PO SCH ×3 (08:23→21:02)
[2021-01-17] MEDS: MULTIVITAMIN TAB PO SCH (08:23)
[2021-01-17] MEDS: DOCUSATE SODIUM 100 MG CAP PO SCH (08:23)
[2021-01-17] MEDS: THIAMINE HCL 100 MG TAB PO SCH (08:23)
[2021-01-17] MEDS: ESCITALOPRAM OXALATE 10 MG TAB PO SCH (09:33)
--- NOTE | 2021-01-17 10:00 | Psychiatric Progress Note ---
Date of Service January 17, 2021 Impression / Recommendations Impression 40 yo female with a history of depression and anxiety, transferred from rehab for emergent SI, bizarre behavior during treatment for opiate dependence. Patient is believed to be suffering from a decompensation of bipolar disorder. (1) Bipolar 1 disorder: 01/17/2021olanzapine dose now at 25 mg total daily. Lexapro now at 10 mg p.o. every morning daily. Patient seems to be making improvements on this current regimen. 01/15/2021--we will continue with up titration of olanzapine. Total daily amount now at 20 mg broken up into 10 mg twice daily. 01/14/21-- Will continue to uptitrate olanzapine medication. Total daily amount today was 15mg broken up into 3 dosage times. 01/13/21--patient was able to acknowledge current psychotic symptoms in the context of her reported bipolar disorder. We will continue to obtain records from outside providers. Patient was administered a one-time dose of Zyprexa 5 mg p.o. To good effect, will proceed with Zyprexa 5 mg p.o. twice daily to target psychosis. 01/12/21--The patient was admitted to the [facility] ([facility]) on q15 min checks (behavioral with suicide precautions) for safety. The patient will participate in group, recreational, and milieu therapies and will be offered additional individual and family sessions as clinically appropriate. Haldol 5 mg po X1 now, MNPR as cannot tolerate roommate due to psychosis. Was given am meds (antidepressants) at half or less of am doses due to concerns about possible bipolar mixed episode. Now relates aud ellis so will hold am dose of Wellbutrin. Will initiate standing antipsychotic/mood stabilizer when able to get consent, in meantime will order am fasting metabolic labs. (2) Opiate dependence, continuous: 01/14/21--The patient's substance use history suggests problematic substance use. Brief intervention was offered and accepted. Intervention was greater than 5 min in length and included assessing readiness to quit, advice on how to reduce or abstain, and to set a specific goal for this hospitalization. aircraft lay out worker will also assist in anticipating barriers to sobriety and in problem- solving for solutions to those problems while arranging for referral to appropriate treatment. The patient is in precontemplative stage with regards to transtheoretical model of change. The patient is advised to decrease consumption due to depressant effects and risk of interaction with prescription medications. The patient agreed to maintain sobriety and will be provided with recovery materials to con l[place]h to educate self on how to cope with their condition without abusing substances. 01/13/21--substance use not addressed at this time due to patient's current level of psychosis 01/12/21-- currently in early remission following suboxone taper, will return to rehab when psychiatrically stable. Unable to participate in brief intervention at this time. (3) Thyroid nodule incidentally noted on imaging study: 01/12/21--incidental finding on c-spine CT of calcified nodules, will need non-urgent US as outpatient. Inventory Assets Strengths: family support Needs: stability, Risk Factors Assessment Male: No : No Mental Health Diagnoses: Yes Substance Use Disorders: Yes Protective Factors Assessment Employed: No Interval History Chief Complaint "Thank you DrVanita I am feeling better but things are still a little bit weird". Review of Systems Sleep Information Total Hours of Sleep: 4.25 Sleep Comments: pt given vistaril per rn. pt on q-15 minute checks Meal Information Percent Meal Consumed - Breakfast: 50 Percent Meal Consumed - Lunch: 100 Percent Meal Consumed - Dinner: 100 Nutrition Comment: pt. declines breakfast at this time but asks that it is held for later. Subjective Subjective Patient was seen & assessed and interval progress reviewed with treatment team nursing and social work Patient continues to participate meaningfully in groups. Is seen eating her meals well and interacting appropriately with others. No acute side effects of the medication observed or reported. Patient is still complaining of a somewhat disorganized thought process but states it seems to be improving every day. She is not as distressed by this as previously but is hoping that it will resolve soon. She is adamant about continuing her work in the rehab and living a substance free life. Physical Exam Psychiatric Orientation: alert Apperance: appropriately groomed and + disheveled Eye Contact: good eye contact and + poor eye contact Motor Behavior: no abnormal motor movements and + psychomotor agitation (rocking) Speech: + pressured speech (when does speak, holding head as if responding to internal stimuli.) and normal rate/rhythm/volume of speech Affect: euthymic affect and + depressed affect Mood: no depressed mood Thought Process: goal directed thought process and + tangential thought process Thought Content: + paranoid, reality based without delusions and + persecution Suicidal Thoughts: denies suicidal thoughts Homicidal Thoughts: denies homicidal thoughts Hallucinations: + auditory hallucinations; no visual hallucinations Cognition: language grossly intact; + recent memory not intact and + attention not intact Estimated Intelligence: consistent with education level Insight: + poor insight and + fair insight Judgement: + limited judgement and + fair judgement Vital Signs (Past 24 Hours) Last Vital Signs Temp 36.9 C 01/17/21 06:33 Pulse 89 01/17/21 06:34 Resp 16 01/17/21 06:33 BP 145/89 H 01/17/21 06:34 Pulse Ox 100 01/11/21 23:33 Results & Data ([facility] [[email or web address] Current Inpatient Medications Current Inpatient Medications: Current Inpatient Medications Acetaminophen (Acetaminophen 325 Mg Tab) 650 mg PO Q4H PRN PRN Reason: Headache or Minor Fever Stop: 02/10/21 23:23 Last Admin: 01/16/21 01:21 Dose: 650 mg Documented by: Al Hydrox/Mg Hydrox/Simethicone (Aluminum/Magnesium Susp 30 Ml Udc) 30 ml PO Q4H PRN PRN Reason: GI Upset Stop: 02/10/21 23:23 Last Admin: 01/15/21 22:12 Dose: 30 ml Documented by: Bismuth Subsalicylate (Bismuth Subsalicylate Liqd 236 Ml) 15 ml PO PRN PRN PRN Reason: Loose Stool Stop: 02/10/21 23:23 Clonidine HCl (Clonidine Hcl 0.1 Mg Tab) 0.1 mg PO TID PRN PRN Reason: Anxiety/Insomnia Stop: 02/11/21 09:50 Last Admin: 01/17/21 06:40 Dose: 0.1 mg Documented by: Cyanocobalamin (Cyanocobalamin (Vitamin B-12) 100 Mcg Tablet) 100 mcg PO QAM TERESSA Stop: 02/11/21 09:59 Last Admin: 01/17/21 08:23 Dose: 100 mcg Documented by: Diclofenac Sodium (Diclofenac Sodium 25 Mg Tabdr) 50 mg PO TID PRN PRN Reason: pain Stop: 02/11/21 13:59 Last Admin: 01/17/21 00:40 Dose: 50 mg Documented by: Escitalopram Oxalate (Escitalopram Oxalate 10 Mg Tab) [facility] Stop: 02/11/21 09:59 Last Admin: 01/13/21 08:53 Dose: 10 mg Documented by: Folic Acid (Folic Acid 1 Mg Tab) [facility] Stop: 02/11/21 09:59 Last Admin: 01/17/21 08:23 Dose: 1 mg Documented by: Hydroxyzine HCl (Hydroxyzine Hcl 25 Mg Tab) 50 mg PO HSZ PRN PRN Reason: Insomnia Stop: 02/10/21 23:23 Last Admin: 01/17/21 00:33 Dose: 50 mg Documented by: Hydroxyzine HCl (Hydroxyzine Hcl 25 Mg Tab) 25 mg PO Q4H PRN PRN Reason: Anxiety Stop: 02/10/21 23:23 Last Admin: 01/17/21 09:38 Dose: 25 mg Documented by: Magnesium Hydroxide (Magnesium Hydroxide Susp 30 Ml Udc) 30 ml PO DAILY PRN PRN Reason: Constipation Stop: 02/10/21 23:23 Multivitamins (Multivitamin Tab) 1 tab PO [facility] Stop: 02/11/21 09:54 Last Admin: 01/17/21 08:23 Dose: 1 tab Documented by: Nicotine Polacrilex (Nicotine Polacrilex 2 Mg Gum) 1 piece MT Q2H PRN PRN Reason: Smoking Cessation Stop: 02/10/21 18:47 Last Admin: 01/14/21 18:03 Dose: 1 piece Documented by: Prazosin HCl (Prazosin Hcl 1 Mg Cap) 12 mg PO HS [facility] Stop: 02/11/21 21:59 Last Admin: 01/16/21 20:51 Dose: 12 mg Documented by: Quetiapine Fumarate (Quetiapine Fumarate 25 Mg Tablet) 25 mg PO Q4 PRN PRN Reason: Anxiety/Agitation Stop: 02/11/21 11:59 Last Admin: 01/13/21 12:26 Dose: 25 mg Documented by: Sodium Chloride (Sodium Chloride 0.65% Na Soln 45 Ml ([place])) 1 - 2 sprays NA PRN PRN PRN Reason: Nasal Dryness/Congestion Stop: 02/10/21 23:23 Last Admin: 01/15/21 21:56 Dose: 2 sprays Documented by: Thiamine HCl (Thiamine Hcl 100 Mg Tab) [facility] Stop: 02/11/21 09:59 Last Admin: 01/17/21 08:23 Dose: 100 mg Documented by: Post Discharge Appointments Other #1: Name of Aftercare Appointment: [facility] Phone Number of Aftercare Appointment: [phone] Aftercare Appointment Comment: [place] [id number] Contact Information Discharge
[2021-01-17] MEDS: ALUMINUM/MAGNESIUM SUSP 30 ML UDC PO PRN (14:29)
[2021-01-17] MEDS: ACETAMINOPHEN 325 MG TAB PO PRN (19:05)
[2021-01-17] MEDS: PRAZOSIN HCL 1 MG CAP PO SCH (21:03)
[2021-01-17] MEDS: OLANZapine 5 MG TABLET PO SCH (21:04)
[2021-01-18] MEDS: ACETAMINOPHEN 325 MG TAB PO PRN ×3 (00:32→23:42)
[2021-01-18] MEDS: diphenhydrAMINE Capsule 25 MG CAP PO PRN ×2 (00:35→14:33)
[2021-01-18] MEDS: BACLOFEN 10 MG TAB PO PRN (06:31)
[2021-01-18] MEDS: hydrOXYzine HCl 25 MG TAB PO PRN ×4 (06:31→23:42)
[2021-01-18] MEDS: FOLIC ACID 1 MG TAB PO SCH (09:34)
[2021-01-18] MEDS: CYANOCOBALAMIN (VITAMIN B-12) 100 MCG TABLET PO SCH (09:34)
[2021-01-18] MEDS: ESCITALOPRAM OXALATE 10 MG TAB PO SCH (09:34)
[2021-01-18] MEDS: DOCUSATE SODIUM 100 MG CAP PO SCH (09:34)
[2021-01-18] MEDS: GABAPENTIN 100 MG CAP PO SCH ×3 (09:34→21:48)
[2021-01-18] MEDS: OLANZapine 10 MG TAB PO SCH (09:35)
[2021-01-18] MEDS: MULTIVITAMIN TAB PO SCH (09:35)
[2021-01-18] MEDS: THIAMINE HCL 100 MG TAB PO SCH (09:35)
--- NOTE | 2021-01-18 16:00 | Psychiatric Progress Note ---
Date of Service January 18, 2021 Impression / Recommendations Impression 40 yo female with a history of depression and anxiety, transferred from rehab for emergent SI, bizarre behavior during treatment for opiate dependence. Patient is believed to be suffering from a decompensation of bipolar disorder. (1) Bipolar 1 disorder: 01/18/2021olanzapine dose now at 25 mg total daily. Lexapro now at 10 mg p.o. every morning daily. Patient seems to be making improvements on this current regimen. 01/15/2021--we will continue with up titration of olanzapine. Total daily amount now at 20 mg broken up into 10 mg twice daily. 01/14/21-- Will continue to uptitrate olanzapine medication. Total daily amount today was 15mg broken up into 3 dosage times. 01/13/21--patient was able to acknowledge current psychotic symptoms in the context of her reported bipolar disorder. We will continue to obtain records from outside providers. Patient was administered a one-time dose of Zyprexa 5 mg p.o. To good effect, will proceed with Zyprexa 5 mg p.o. twice daily to target psychosis. 01/12/21--The patient was admitted to the [facility] ([facility] mental health unit) on q15 min checks (behavioral with suicide precautions) for safety. The patient will participate in group, recreational, and milieu therapies and will be offered additional individual and family sessions as clinically appropriate. Haldol 5 mg po X1 now, MNPR as cannot tolerate roommate due to psychosis. Was given am meds (antidepressants) at half or less of am doses due to concerns about possible bipolar mixed episode. Now relates aud ellis so will hold am dose of Wellbutrin. Will initiate standing antipsychotic/mood stabilizer when able to get consent, in meantime will order am fasting metabolic labs. (2) Opiate dependence, continuous: 01/14/21--The patient's substance use history suggests problematic substance use. Brief intervention was offered and accepted. Intervention was greater than 5 min in length and included assessing readiness to quit, advice on how to reduce or abstain, and to set a specific goal for this hospitalization. hot stick worker will also assist in anticipating barriers to sobriety and in problem- solving for solutions to those problems while arranging for referral to appropriate treatment. The patient is in precontemplative stage with regards to transtheoretical model of change. The patient is advised to decrease consumption due to depressant effects and risk of interaction with prescription medications. The patient agreed to maintain sobriety and will be provided with recovery materials to con lokesh to educate self on how to cope with their condition without abusing substances. 1patient remains committed to being substance use Free. She remains committed to returning to rehab. 01/13/21--substance use not addressed at this time due to patient's current level of psychosis 01/12/21-- currently in early remission following suboxone taper, will return to rehab when psychiatrically stable. Unable to participate in brief intervention at this time. (3) Thyroid nodule incidentally noted on imaging study: 01/12/21--incidental finding on c-spine CT of calcified nodules, will need non-urgent US as outpatient. Inventory Assets Strengths: family support Needs: stability, Risk Factors Assessment Male: No : No Mental Health Diagnoses: Yes Substance Use Disorders: Yes Protective Factors Assessment Employed: No Interval History Chief Complaint "I am doing okay". Review of Systems Sleep Information Total Hours of Sleep: 5.5 Sleep Comments: pt given vistaril per rn. pt on q-15 minute checks Meal Information Percent Meal Consumed - Breakfast: 100 Percent Meal Consumed - Lunch: 80 Percent Meal Consumed - Dinner: 0 Nutrition Comment: pt. declines breakfast at this time but asks that it is held for later. Subjective Subjective Patient was seen & assessed and interval progress reviewed with treatment team nursing and social work Patient is showing significant improvement. She reports her thoughts being more organized and less distressful. She reports feeling calmer with less anxiety. She is interacting appropriately with peers. Physical Exam Psychiatric Orientation: alert Apperance: appropriately groomed and + disheveled Eye Contact: good eye contact and + poor eye contact Motor Behavior: no abnormal motor movements and + psychomotor agitation (rocking) Speech: normal rate/rhythm/volume of speech Affect: euthymic affect Mood: no depressed mood Thought Process: goal directed thought process and + tangential thought process Thought Content: reality based without delusions Suicidal Thoughts: denies suicidal thoughts Homicidal Thoughts: denies homicidal thoughts Hallucinations: no auditory hallucinations Cognition: recent memory grossly intact Estimated Intelligence: consistent with education level Insight: + fair insight Judgement: + fair judgement Vital Signs (Past 24 Hours) Last Vital Signs Temp 37 C 05/09/21 06:31 Pulse 109 H 01/18/21 06:32 Resp 16 01/18/21 06:31 BP 135/91 01/18/21 06:32 Pulse Ox 100 01/11/21 23:33 Results & Data ([facility]) Current Inpatient Medications Current Inpatient Medications: Current Inpatient Medications Acetaminophen (Acetaminophen 325 Mg Tab) 650 mg PO Q4H PRN PRN Reason: Headache or Minor Fever Stop: 02/10/21 23:23 Last Admin: 01/18/21 12:28 Dose: 650 mg Documented by: Al Hydrox/Mg Hydrox/Simethicone (Aluminum/Magnesium Susp 30 Ml Udc) 30 ml PO Q4H PRN PRN Reason: GI Upset Stop: 02/10/21 23:23 Last Admin: 01/17/21 14:29 Dose: 30 ml Documented by: Bismuth Subsalicylate (Bismuth Subsalicylate Liqd 236 Ml) 15 ml PO PRN PRN PRN Reason: Loose Stool Stop: 02/10/21 23:23 Clonidine HCl (Clonidine Hcl 0.1 Mg Tab) 0.1 mg PO TID PRN PRN Reason: Anxiety/Insomnia Stop: 02/11/21 09:50 Last Admin: 01/17/21 17:52 Dose: 0.1 mg Documented by: Cyanocobalamin (Cyanocobalamin (Vitamin B-12) 100 Mcg Tablet) 100 mcg PO QAM TERESSA Stop: 02/11/21 09:59 Last Admin: 01/18/21 09:34 Dose: 100 mcg Documented by: Diclofenac Sodium (Diclofenac Sodium 25 Mg Tabdr) 50 mg PO TID PRN PRN Reason: pain Stop: 02/11/21 13:59 Last Admin: 01/17/21 17:51 Dose: 50 mg Documented by: Escitalopram Oxalate (Escitalopram Oxalate 10 Mg Tab) 10 mg PO QAM TERESSA Stop: 02/11/21 09:59 Last Admin: 01/13/21 08:53 Dose: 10 mg Documented by: Folic Acid (Folic Acid 1 Mg Tab) 1 mg PO QAM TERESSA Stop: 02/11/21 09:59 Last Admin: 01/18/21 09:34 Dose: 1 mg Documented by: Hydroxyzine HCl (Hydroxyzine Hcl 25 Mg Tab) 50 mg PO HSZ PRN PRN Reason: Insomnia Stop: 02/10/21 23:23 Last Admin: 01/17/21 00:33 Dose: 50 mg Documented by: Hydroxyzine HCl (Hydroxyzine Hcl 25 Mg Tab) 25 mg PO Q4H PRN PRN Reason: Anxiety Stop: 02/10/21 23:23 Last Admin: 01/18/21 12:27 Dose: 25 mg Documented by: Magnesium Hydroxide (Magnesium Hydroxide Susp 30 Ml Udc) 30 ml PO DAILY PRN PRN Reason: Constipation Stop: 02/10/21 23:23 Multivitamins (Multivitamin Tab) 1 tab PO QAM TERESSA Stop: 02/11/21 09:54 Last Admin: 01/18/21 09:35 Dose: 1 tab Documented by: Nicotine Polacrilex (Nicotine Polacrilex 2 Mg Gum) 1 piece MT Q2H PRN PRN Reason: Smoking Cessation Stop: 02/10/21 18:47 Last Admin: 01/14/21 18:03 Dose: 1 piece Documented by: Prazosin HCl (Prazosin Hcl 1 Mg Cap) 12 mg PO HS TERESSA Stop: 02/11/21 21:59 Last Admin: 01/17/21 21:03 Dose: 12 mg Documented by: Quetiapine Fumarate (Quetiapine Fumarate 25 Mg Tablet) 25 mg PO Q4 PRN PRN Reason: Anxiety/Agitation Stop: 02/11/21 11:59 Last Admin: 01/13/21 12:26 Dose: 25 mg Documented by: Sodium Chloride (Sodium Chloride 0.65% Na Soln 45 Ml ([place])) 1 - 2 sprays NA PRN PRN PRN Reason: Nasal Dryness/Congestion Stop: 02/10/21 23:23 Last Admin: 01/15/21 21:56 Dose: 2 sprays Documented by: Thiamine HCl (Thiamine Hcl 100 Mg Tab) 100 mg PO QAM TERESSA Stop: 02/11/21 09:59 Last Admin: 01/18/21 09:35 Dose: 100 mg Documented by: Post Discharge Appointments Other #1: Name of Aftercare Appointment: [facility] Phone Number of Aftercare Appointment: [phone] Aftercare Appointment Comment: [place] [address] [place], [place] [id number] Contact Information Discharge
[2021-01-18] MEDS: cloNIDine HCL 0.1 MG TAB PO PRN (16:31)
[2021-01-18] MEDS: ALUMINUM/MAGNESIUM SUSP 30 ML UDC PO PRN ×2 (18:17→22:33)
[2021-01-18] MEDS: OLANZapine 5 MG TABLET PO SCH (21:48)
[2021-01-18] MEDS: PRAZOSIN HCL 1 MG CAP PO SCH (21:49)
[2021-01-18] MEDS: DICLOFENAC SODIUM 25 MG TABDR PO PRN (22:32)
[2021-01-19] MEDS: DICLOFENAC SODIUM 25 MG TABDR PO PRN (01:04)
[2021-01-19] MEDS: BACLOFEN 10 MG TAB PO PRN ×2 (01:05→08:17)
[2021-01-19] MEDS: cloNIDine HCL 0.1 MG TAB PO PRN (07:23)
[2021-01-19] MEDS: ACETAMINOPHEN 325 MG TAB PO PRN ×2 (07:23→11:29)
[2021-01-19] MEDS: DOCUSATE SODIUM 100 MG CAP PO SCH (08:07)
[2021-01-19] MEDS: CYANOCOBALAMIN (VITAMIN B-12) 100 MCG TABLET PO SCH (08:07)
[2021-01-19] MEDS: THIAMINE HCL 100 MG TAB PO SCH (08:08)
[2021-01-19] MEDS: FOLIC ACID 1 MG TAB PO SCH (08:08)
[2021-01-19] MEDS: MULTIVITAMIN TAB PO SCH (08:08)
[2021-01-19] MEDS: ESCITALOPRAM OXALATE 10 MG TAB PO SCH (08:08)
[2021-01-19] MEDS: OLANZapine 10 MG TAB PO SCH (08:08)
[2021-01-19] MEDS: GABAPENTIN 100 MG CAP PO SCH (08:08)
--- NOTE | 2021-01-19 11:22 | Discharge Summary ---
Date of Service January 19, 2021 History of Present Illness Patient reports a history of depression and anxiety, was not able to get subox[place] when staying [place] and was off for over a month when sought care at rehab mid November. It was recommended she restart Suboxone to officially taper there and received last dose 2-3 days ago. During that time she has been increasingly irritable, less present in therapy groups, not sleeping or eating as well. Aleida reports having thoughts to end her life by barricading herself in her room at [facility] and then cutting her wrists. She was transferred to ED as could not contract for safety at rehab. Today the patient is rocking and complaining of racing thoughts. In her room in the dark to limit stimulation. Reports she can't make out her racing thoughts but does feel suicidal, doesn't want to act on those thoughts here, "I just want to feel better, please give me something". Denies previous exposure to mood stabilizers. Denies hx of bipolar depression. Understands that antidepressants can be activating but hasn't really experienced this before, at least not to this level. Unable to obtain history of use of heroin. Denies physical symptoms of withdrawal. Attempted to reevaluate patient after 50 mg of Seroquel as out in hallway, she was unable to tolerate stimulation of speaking with peer and returned to room to [facility]. Voices were scary and adding to her paranoia. Physical Exam Psychiatric Orientation: alert Apperance: appropriately groomed Eye Contact: good eye contact Motor Behavior: no abnormal motor movements Speech: normal rate/rhythm/volume of speech Affect: euthymic affect Mood: no depressed mood Thought Process: goal directed thought process Thought Content: reality based without delusions Suicidal Thoughts: denies suicidal thoughts Homicidal Thoughts: denies homicidal thoughts Hallucinations: no auditory hallucinations and no visual hallucinations Cognition: recent memory grossly intact and language grossly intact; + attention not intact Estimated Intelligence: consistent with education level Insight: + fair insight Judgement: + fair judgement Vital Signs (Past 24 Hours) Last Vital Signs Temp 36.7 C 01/19/21 10:13 Pulse 90 01/19/21 10:13 Resp 16 01/19/21 10:13 BP 120/82 01/19/21 10:13 Pulse Ox 100 01/19/21 10:13 Principal Diagnosis bipolar 1 disorder Psychiatric Data See daily stay summary. In short, safety was maintained, and the patient was cooperative with care. Medication changes included starting olanzapine as well as discontinuing Wellbutrin and they tolerated this well. A family session was held and safety plan was completed prior to discharge. Day of Discharge Assessment Today the patient voices readiness for discharge. They note improvement in mood and deny thoughts to harm self or others. Thoughts remain organized and they are improved from admission. There is no evidence of psychosis. They agree to take medications as prescribed and keep follow-up appointments. They are stable for discharge to outpatient level of care. Transition of Care Transition Of Care Record: was reviewed with the patient Advance Directives Advance Directives Information Provided: Yes Advance Directives: No Mental Health Advance Directive: Yes Living Will: No Power of Branding Machine Operator: No Advance Directives Reason:: Declines as Mental Health Visit. Risk Factors Assessment Male: No : No Mental Health Diagnoses: Yes Substance Use Disorders: Yes Protective Factors Assessment Employed: No Tobacco Cessation at Discharge Tobacco Cessation Medication Prescribed at Discharge: Offered & Pt Refused Total Time Total Time Spent: Greater Than 30 Minutes Total Time Includes: Examination of the patient, Discharge Planning and Medication Reconciliation Discharge Data Lab Results 01/11/21 01/11/21 01/11/21 17:20 17:20 17:20 WBC RBC Hgb Hct MCV MCH MCHC RDW Std Deviation RDW Coeff of Yogi Plt Count MPV Immature Gran % (Auto) Neut % (Auto) Lymph % (Auto) Vigo % (Auto) Eos % (Auto) Baso % (Auto) Neut # (Auto) Lymph # (Auto) [place] # (Auto) Eos # (Auto) Baso # (Auto) Immature Gran # (Auto) Sodium Potassium Chloride Carbon Dioxide Anion Gap BUN Creatinine Est Cr Clr Drug Dosing Est GFR ( Amer) Est GFR (Non-Af Amer) BUN/Creatinine Ratio Glucose Fasting Glucose Calcium Total Bilirubin AST ALT Alkaline Phosphatase Total Protein Albumin Globulin Albumin/Globulin Ratio Triglycerides Cholesterol LDL Cholesterol, Calc VLDL Cholesterol, Calc HDL Cholesterol Cholesterol/HDL Ratio TSH HCG, Qual Urine Color Dark Yellow Urine Appearance Clear Urine pH 5.5 Ur Specific [place] 1.021 Urine Protein Negative Urine Glucose (UA) Negative Urine Ketones Trace H Urine Blood Negative Urine Nitrite Negative Urine Bilirubin Negative Urine Urobilinogen Negative Ur Leukocyte Esterase Negative Salicylates Urine Opiates Screen Neg Ur Methadone, Qual Neg Acetaminophen Urine Barbiturates Neg Ur Phencyclidine (PCP) Neg U Amphetamin/Meth Scrn Neg Urine MDEA negative MDMA (Ecstasy) Screen Pos H MDMA negative Urine MDMA negative U OH-Alprazolam Confrm NEGATIVE U Benzodiazepines Scrn Pos H 7-Amino Clonazepam NEGATIVE Ur Nordiazepam Confirm 272 H U OH-ethylflurazepam NEGATIVE U Lorazepam Cnf GC/MS NEGATIVE U Oxazepam Confm GC/MS 1170 H Ur Temazepam Confirm 1310 H U OH-Triazolam Confirm NEGATIVE U OH-Midazolam Confirm NEGATIVE Ur Cocaine Metabolite Neg U Marijuana (THC) Screen Neg Drug Screen Comment SEE NOTE Ethyl Alcohol mg/dL COVID-19 Eval Order SARS-CoV-2 (PCR) Influenza Type A (PCR) Influenza Type B (PCR) RSV (RT-PCR) 01/11/21 01/11/21 01/11/21 17:52 17:52 17:52 WBC 4.76 L RBC 4.25 Hgb 12.6 Hct 37.0 MCV 87.1 MCH 29.6 MCHC 34.1 RDW Std Deviation 44.8 RDW Coeff of Yogi 13.9 Plt Count 275 MPV 8.6 Immature Gran % (Auto) 0.2 Neut % (Auto) 33.3 Lymph % (Auto) 55.0 Vigo % (Auto) 10.7 Eos % (Auto) 0.6 Baso % (Auto) 0.2 Neut # (Auto) 1.58 Lymph # (Auto) 2.62 Vigo # (Auto) 0.51 Eos # (Auto) 0.03 Baso # (Auto) 0.01 Immature Gran # (Auto) 0.01 Sodium 136 Potassium 3.7 Chloride 104 Carbon Dioxide 24 Anion Gap 8.0 BUN 11 Creatinine 1.01 Est Cr Clr Drug Dosing 80.1 Est GFR ( Amer) 80.1 Est GFR (Non-Af Amer) 69.1 BUN/Creatinine Ratio 10.4 Glucose 86 Fasting Glucose Calcium 9.6 Total Bilirubin 0.7 AST 21 ALT 43 Alkaline Phosphatase 121 H Total Protein 8.3 H Albumin 3.5 Globulin 4.8 H Albumin/Globulin Ratio 0.7 L Triglycerides Cholesterol LDL Cholesterol, Calc VLDL Cholesterol, Calc HDL Cholesterol Cholesterol/HDL Ratio TSH 1.110 HCG, Qual Urine Color Urine Appearance Urine pH Ur Specific [place] Urine Protein Urine Glucose (UA) Urine Ketones Urine Blood Urine Nitrite Urine Bilirubin Urine Urobilinogen Ur Leukocyte Esterase Salicylates < 1.7 L Urine Opiates Screen Ur Methadone, Qual Acetaminophen < 2 L Urine Barbiturates Ur Phencyclidine (PCP) U Amphetamin/Meth Scrn Urine MDEA MDMA (Ecstasy) Screen MDMA Urine MDMA U OH-Alprazolam Confrm U Benzodiazepines Scrn 7-Amino Clonazepam Ur Nordiazepam Confirm U OH-ethylflurazepam U Lorazepam Cnf GC/MS U Oxazepam Confm GC/MS Ur Temazepam Confirm U OH-Triazolam Confirm U OH-Midazolam Confirm Ur Cocaine Metabolite U Marijuana (THC) Screen Drug Screen Comment Ethyl Alcohol mg/dL COVID-19 Eval Order SARS-CoV-2 (PCR) Influenza Type A (PCR) Influenza Type B (PCR) RSV (RT-PCR) 01/11/21 01/11/21 01/11/21 17:52 17:52 19:30 WBC RBC Hgb Hct MCV MCH MCHC RDW Std Deviation RDW Coeff of Yogi Plt Count MPV Immature Gran % (Auto) Neut % (Auto) Lymph % (Auto) [place] % (Auto) Eos % (Auto) Baso % (Auto) Neut # (Auto) Lymph # (Auto) [place] # (Auto) Eos # (Auto) Baso # (Auto) Immature Gran # (Auto) Sodium Potassium Chloride Carbon Dioxide Anion Gap BUN Creatinine Est Cr Clr Drug Dosing Est GFR ( Amer) Est GFR (Non-Af Amer) BUN/Creatinine Ratio Glucose Fasting Glucose Calcium Total Bilirubin AST ALT Alkaline Phosphatase Total Protein Albumin Globulin Albumin/Globulin Ratio Triglycerides Cholesterol LDL Cholesterol, Calc VLDL Cholesterol, Calc HDL Cholesterol Cholesterol/HDL Ratio TSH HCG, Qual Negative Urine Color Urine Appearance Urine pH Ur Specific [place] Urine Protein Urine Glucose (UA) Urine Ketones Urine Blood Urine Nitrite Urine Bilirubin Urine Urobilinogen Ur Leukocyte Esterase Salicylates Urine Opiates Screen Ur Methadone, Qual Acetaminophen Urine Barbiturates Ur Phencyclidine (PCP) U Amphetamin/Meth Scrn Urine MDEA MDMA (Ecstasy) Screen MDMA Urine MDMA U OH-Alprazolam Confrm U Benzodiazepines Scrn 7-Amino Clonazepam Ur Nordiazepam Confirm U OH-ethylflurazepam U Lorazepam Cnf GC/MS U Oxazepam Confm GC/MS Ur Temazepam Confirm U OH-Triazolam Confirm U OH-Midazolam Confirm Ur Cocaine Metabolite U Marijuana (THC) Screen Drug Screen Comment Ethyl Alcohol mg/dL < 3.0 COVID-19 Eval Order CovFluRsv at [facility] SARS-CoV-2 (PCR) Influenza Type A (PCR) Influenza Type B (PCR) RSV (RT-PCR) 01/11/21 01/13/21 19:30 07:15 WBC RBC Hgb Hct MCV MCH MCHC RDW Std Deviation RDW Coeff of Yogi Plt Count MPV Immature Gran % (Auto) Neut % (Auto) Lymph % (Auto) [place] % (Auto) Eos % (Auto) Baso % (Auto) Neut # (Auto) Lymph # (Auto) [place] # (Auto) Eos # (Auto) Baso # (Auto) Immature Gran # (Auto) Sodium Potassium Chloride Carbon Dioxide Anion Gap BUN Creatinine Est Cr Clr Drug Dosing Est GFR ( Amer) Est GFR (Non-Af Amer) BUN/Creatinine Ratio Glucose Fasting Glucose 100 H Calcium Total Bilirubin AST ALT Alkaline Phosphatase Total Protein Albumin Globulin Albumin/Globulin Ratio Triglycerides 72 Cholesterol 294 H LDL Cholesterol, Calc 188 VLDL Cholesterol, Calc 14 HDL Cholesterol 92 Cholesterol/HDL Ratio 3 TSH HCG, Qual Urine Color Urine Appearance Urine pH Ur Specific [place] Urine Protein Urine Glucose (UA) Urine Ketones Urine Blood Urine Nitrite Urine Bilirubin Urine Urobilinogen Ur Leukocyte Esterase Salicylates Urine Opiates Screen Ur Methadone, Qual Acetaminophen Urine Barbiturates Ur Phencyclidine (PCP) U Amphetamin/Meth Scrn Urine MDEA MDMA (Ecstasy) Screen MDMA Urine MDMA U OH-Alprazolam Confrm U Benzodiazepines Scrn 7-Amino Clonazepam Ur Nordiazepam Confirm U OH-ethylflurazepam U Lorazepam Cnf GC/MS U Oxazepam Confm GC/MS Ur Temazepam Confirm U OH-Triazolam Confirm U OH-Midazolam Confirm Ur Cocaine Metabolite U Marijuana (THC) Screen Drug Screen Comment Ethyl Alcohol mg/dL COVID-19 Eval Order SARS-CoV-2 (PCR) NEGATIVE Influenza Type A (PCR) Negative Influenza Type B (PCR) Negative RSV (RT-PCR) Negative Hospital Course (1) Bipolar 1 disorder: 01/18/2021olanzapine dose now at 25 mg total daily. Lexapro now at 10 mg p.o. every morning daily. Patient seems to be making improvements on this current regimen. 01/15/2021--we will continue with up titration of olanzapine. Total daily amount now at 20 mg broken up into 10 mg twice daily. 01/14/21-- Will continue to uptitrate olanzapine medication. Total daily amount today was 15mg broken up into 3 dosage times. 01/13/21--patient was able to acknowledge current psychotic symptoms in the context of her reported bipolar disorder. We will continue to obtain records from outside providers. Patient was administered a one-time dose of Zyprexa 5 mg p.o. To good effect, will proceed with Zyprexa 5 mg p.o. twice daily to target psychosis. 01/12/21--The patient was admitted to the [facility] ([facility]) on q15 min checks (behavioral with suicide precautions) for safety. The patient will participate in group, recreational, and milieu therapies and will be offered additional individual and family sessions as clinically appropriate. Haldol 5 mg po X1 now, MNPR as cannot tolerate roommate due to psychosis. Was given am meds (antidepressants) at half or less of am doses due to concerns about possible bipolar mixed episode. Now relates aud ellis so will hold am dose of Wellbutrin. Will initiate standing antipsychotic/mood stabilizer when able to get consent, in meantime will order am fasting metabolic labs. (2) Opiate dependence, continuous: 01/14/21--The patient's substance use history suggests problematic substance use. Brief intervention was offered and accepted. Intervention was greater than 5 min in length and included assessing readiness to quit, advice on how to reduce or abstain, and to set a specific goal for this hospitalization. coal chute worker will also assist in anticipating barriers to sobriety and in problem- solving for solutions to those problems while arranging for referral to appropriate treatment. The patient is in precontemplative stage with regards to transtheoretical model of change. The patient is advised to decrease consumption due to depressant effects and risk of interaction with prescription medications. The patient agreed to maintain sobriety and will be provided with recovery materials to continue to educate self on how to cope with their condition without abusing substances. 01/14/2021atient remains committed to being substance use Free. She remains committed to returning to rehab. 01/13/21--substance use not addressed at this time due to patient's current level of psychosis 01/12/21-- currently in early remission following suboxone taper, will return to rehab when psychiatrically stable. Unable to participate in brief intervention at this time. (3) Thyroid nodule incidentally noted on imaging study: 01/12/21--incidental finding on c-spine CT of calcified nodules, will need non-urgent US as outpatient. Post Discharge Appointments Smoking Cessation Counseling Tobacco Cessation Medication Prescribed at Discharge: Offered & Pt Refused Other #1: Name of Aftercare Appointment: [facility] Phone Number of Aftercare Appointment: [phone] Aftercare Appointment Comment: [address], [place] [address] Release of Information Aftercare Appointment: Obtained, Reviewed and Signed Contact Information Discharge Discharge Address: [facility] Discharge Plan Discharge Items Patient Disposition: Drug & Alcohol Rehab Reason For Visit: DEPRESSIVE DISORDER, UNSPECIFIED Discharge Diagnosis: Bipolar 1 Disorder Condition on Discharge: Good Goals: Stay compliant, Maintain Sobriety Activity: Resume your previous activity Non-emergency contact: Primary Care Provider, Psychiatrist and Therapist Call non-emergency contact if: you have any medication questions and your symptoms worsen Follow-up/Referrals: PCP,NO [Primary Care Provider] - Diet: Regular Addtl Attending Provider Instructions: SPECIAL CARE INSTRUCTIONS: 1. Follow through with your scheduled aftercare appointments. If unable to keep an appointment, please call to reschedule. 2. Take your medication only as prescribed. Medication should not be changed or stopped without the approval of your doctor. In the event of worsening symptoms or concerns about side effects, contact your doctor immediately. 3. Utilize new healthy coping skills, anger management skills, and stress management skills learned during your hospitalization. Journal feelings and process them with a support person. Identify stressors or situations that may result in relapse, deterioration or inappropriate behaviors and develop a plan to deal with those issues. 4. If your coping skills are ineffective and you are in crisis, contact your outpatient providers for direction. If unable to reach your providers, please call the [facility] CRISIS LINE AT , go to the [facility] walk-in center at [address], [address], [place], or go to the closest Emergency Room. 5. Avoid alcohol and un-prescribed drugs. 6. You have been provided with the Mental Health Advance Directives Pamphlet for your review. AFTERCARE APPOINTMENTS: * Please call your insurance company prior to your scheduled appointment to confirm your aftercare providers are covered. Take your insurance information to your appointments. WHO TO CALL AND WHEN: Medical Emergencies: For questions or emergencies related to your hospital stay, please contact the Inpatient Behavioral Health Unit at [phone]. A copyist is on-call 04/04 for the Behavioral Health Unit for emergencies At any time you feel your situation is an emergency, you may also call 911 immediately. Pending Studies at Discharge: No Stand-Alone Forms: [facility] Skilled Items Patient informed of condition?: Yes DNR: No Discharge Level of Care: Other Communicable Disease: No Discharge Prognosis: Stable Lines: None Urinary Catheter: No Medications and DC Order Prescriptions: New olanzapine 10 mg Tablet 10 mg PO QAM Qty: 30 RF: 0 baclofen 10 mg Tablet 10 mg PO TID PRN (Reason: muscle spasm) Qty: 90 RF: 0 gabapentin 100 mg Capsule 200 mg PO TID Qty: 90 RF: 0 escitalopram oxalate 10 mg Tablet 10 mg PO QAM Qty: 30 RF: 0 olanzapine 10 mg tablet 15 mg PO HS Qty: 45 RF: 0 Continued multivitamin Tablet 1 tab PO DAILY Qty: 1 RF: 0 clonidine HCl 0.1 mg Tablet 0.1 mg PO TID PRN (Reason: HAS HOLD PARAMETERS ???) Qty: 1 RF: 0 loperamide 2 mg Capsule 4 mg PO QID PRN (Reason: LOOSE STOOLS) Qty: 1 RF: 0 nicotine (polacrilex) [Nicorette] 2 mg Gum 4 mg BUCCAL Q2H PRN (Reason: Smoking Cessation) Qty: 1 RF: 0 cyanocobalamin (vitamin B-12) [Vitamin B-12] 1,000 mcg Tablet 1,000 mcg PO DAILY Qty: 1 RF: 0 thiamine HCl (vitamin B1) 100 mg Tablet 100 mg PO DAILY Qty: 1 RF: 0 hydroxyzine HCl 50 mg Tablet 50 - 100 mg PO BID PRN (Reason: Anxiety) Qty: 1 RF: 0 prazosin 5 mg Capsule 10 mg PO HS Qty: 1 RF: 0 diphenhydramine HCl [Benadryl] 25 mg Capsule 25 - 50 mg PO Q6H PRN (Reason: NEEDED) Qty: 1 RF: 0 folic acid 1 mg Tablet 1 mg PO DAILY Qty: 1 RF: 0 diclofenac sodium 50 mg Tablet,Delayed Release (Dr/Ec) 50 mg PO TID PRN (Reason: Pain) Qty: 1 RF: 0 prazosin 2 mg Capsule 2 mg PO HS Qty: 1 RF: 0 melatonin 5 mg Tablet 5 - 10 mg PO HS PRN (Reason: Sleep) Qty: 1 RF: 0 Discontinued escitalopram oxalate [Lexapro] 20 mg Tablet 20 mg PO DAILY RF: 0 bupropion HCl [Wellbutrin XL] 300 mg Tablet Extended Release 24 Hr 300 mg PO QAM RF: 0 bupropion HCl [Wellbutrin XL] 150 mg Tablet Extended Release 24 Hr 150 mg PO QAM RF: 0 Discharge Orders: Discharge Order (Routine); Ordered 01/19/21 Ordered By: Honorio Hayes Admission Data Admit Date/Time: 01/11/21 23:24 Attending Provider: Meron Andrade Admit Provider: Meron Andrade Primary Care Provider: PCP,NO Other Interventions: Discharge Summary Assessment (RN) Last Done: 01/19/21 10:13 PSY Interdisciplinary Discharge Planning Last Done: 01/19/21 10:14 Coding Level of Care Code 00891 D/C day mgmt > 30 min Diagnoses Bipolar 1 disorder F31.9 Opiate dependence, continuous F11.20 Thyroid nodule incidentally noted on imaging study E04.1
[2021-01-19] MEDS: hydrOXYzine HCl 25 MG TAB PO PRN (11:29)
[2021-01-19] MEDS: ALUMINUM/MAGNESIUM SUSP 30 ML UDC PO PRN (11:29)
== END 2021-01-19 12:03 | disposition alcohol treatment (31) | DRG 885 ==
LOC: ED 15:38 → 3S 23:24